=== PATIENT | male | born 1995 | race Caucasian/White ===

== ENCOUNTER 2020-10-24 17:34 | Emergency (ER) | payer OTHER, SELFPAY ==
[2020-10-24 17:36] VITALS: BP 122/78; PULSE 99; RESP 20; TEMP 36.5; O2SAT 100; BMI 25.0
--- NOTE | 2020-10-24 19:26 | PC.NURSE ---
provider at bedside
--- NOTE | 2020-10-24 19:38 | ECG_ITS ---
Test Reason : CHEST PAIN Blood Pressure : / mmHG Vent. Rate : 074 BPM Atrial Rate : 074 BPM P-R Int : 136 ms QRS Dur : 096 ms QT Int : 408 ms P-R-T Axes : 069 073 043 degrees QTc Int : 452 ms Normal sinus rhythm Normal ECG When compared with ECG of 17-JUN-2015 15:52, No significant change was found Referred By: Nikki Napoles Electronically Signed By:LYNNE WOODY MD
--- NOTE | 2020-10-24 19:39 | XR_ITS ---
EXAMINATION: XR CHEST CLINICAL INFORMATION: Chest pain COMPARISON: None TECHNIQUE: Frontal view of the chest was obtained. FINDINGS: No significant abnormality is noted involving the heart, lungs, mediastinum, bony thorax or soft tissues. XR/XR chest 1V IMPRESSION: Unremarkable examination.
--- NOTE | 2020-10-24 19:44 | ED.GENADULT ---
HPI - General Adult General Chief complaint: General Medical Stated complaint: covid symptoms Time Seen by Provider: 10/24/20 19:38 Source: patient Mode of arrival: ambulatory History of Present Illness HPI narrative: 25-year-old male with no significant past medical history presenting to the ED complaining nausea, nonbloody emesis and diarrhea, generalized fatigue/weakness, chills, upper abdominal pain, chest pain, mild SOB x3 weeks. Also reports syncopal episode in bathroom today while vomiting. Reports vomiting about 16x today. States CP has been constant x3 weeks described as pressure/tightness, worse inspiration/movement. Denies head trauma, headache, recent travel, suspicious food intake, LE edema, history of blood clots, sick contacts. Admits was at [facility] ED evaluated this week for similar symptoms, workup was negative was discharged home Onset (ago): day(s) Related Data Allergies Allergy/AdvReac Type Severity Reaction Status Date / Time ibuprofen Allergy Unknown nausea/dry Verified 02/03/18 00:00 heave oxycodone Allergy Unknown nausea/dry Verified 02/03/18 00:00 heave No Known Allergies Allergy Unverified 06/28/20 16:23 Review of Systems Review of Systems: Constitutional: No Weight loss, No Fever, + Chills, +Fatigue,+Malaise ENT/Mouth: No Sinus Pain, No Hoarseness, No sore throat, No Rhinorrhea, No Swallowing Difficulty Eyes: No Vision Changes Cardiovascular: + Chest Pain,+ SOB, No Dyspnea on Exertion, No Orthopnea, No Edema, No Palpitations Respiratory: No Cough, No Sputum, No Wheezing Gastrointestinal: + Nausea, + Vomiting, No Diarrhea, No Constipation, + Abdominal pain, No Hematochezia, No Melena Genitourinary: No irregular bleeding, No Dysuria, No Urinary Frequency, No Hematuria Musculoskeletal: No joint pain, No Myalgias, No Joint Swelling Skin: No Skin Lesions, No rash Neuro: + Weakness, + Loss of Consciousness, + lightheadedness, No Headache Yes all other systems are reviewed and are negative [facility] Past Medical History Attestation statement: The following information was validated with the patient. Social History Social History Alcohol intake: never Smoked in Last 30 Days: No Use of substances other than those prescribed or required for medical reasons: No Advance Directives: No Advance Directives Information Provided: Yes Physical Exam Vital Signs: Vital Signs: Last Vital Signs Temp 97.7 F 10/24/20 17:36 Pulse 99 10/24/20 17:36 Resp 20 10/24/20 17:36 BP 122/78 10/24/20 17:36 Pulse Ox 100 10/24/20 17:36 Body Mass Index 25.0 Const: Other: Pale General: cooperative Orientation/consciousness: patient oriented x3 Limitations: no limitations HENMT: Head: Yes normal to inspection and Yes atraumatic Ears: hearing grossly normal bilaterally General nose exam: Normal external nose present Face and sinus: Yes normal facial exam Throat: Yes posterior oropharynx normal, Yes tonsils normal and Yes uvula midline Eyes: General: appearance normal, both eyes and all related structures Pupils: Equal, round and reactive pupils present EOM: EOMs intact bilaterally Neck: Neck: Yes normal visual inspection and Yes no meningeal signs Resp: Effort & Inspection: normal respiratory effort Auscultation: clear to auscultation bilaterally, no rales, no rhonchi and no wheezes Cardio: Rate: regular rate Heart sounds: S1 normal heart sound present and S2 normal heart sound present GI: Inspection: Yes normal to inspection Palpation (GI): Soft to palpation, Tenderness to palpation present (GI) in the epigastrum, in the RLQ, in the LUQ and in the RUQ, no guarding and not rigid Skin: Rashes: no rashes Wounds: no wounds Neuro: General: patient oriented x3, gait normal, tone normal, moves all extremities, no meningeal signs, no focal motor deficits and CN's II-XI intact bilaterally Cranial nerves: Yes Equal, round and reactive pupils present Cognition (Neuro): normal cognition Gait exam (Neuro): Normal gait present Motor exam (neuro): 5/5 motor strength present throughout Coordination: [id number] test normal Extrem: Other: No LE edema or calf tenderness General: Yes normal to inspection Course Course Course Narrative: Obtained records from [facility] from patient's visit on 10/22/2020. Had workup consisted of labs, CXR, and bedside ultrasound which were unremarkable, was discharged with diagnosis of costochondritis CXR unremarkable -2100-- ED care transferred to [facility] pending labs, UA, imaging, orthostatics, and re-evaluation. Dispo per results Medical Decision Making [facility] Narrative Medical decision making narrative: 25-year-old male with no significant past medical history presenting to the ED complaining nausea, nonbloody emesis and diarrhea, generalized fatigue/weakness, chills, upper abdominal pain, chest pain, mild SOB x3 weeks. Also reports syncopal episode in bathroom today while vomiting. On exam pale, tachycardic with heart rate 99, lungs CTA, abdomen soft with upper/RLQ TTP, no rebound or guarding, no focal neuro deficits. Concern for dehydration vs appendicitis/gastroenteritis vs GERD/gastritis/Pancreatitis/cholecystitis vs viral syndrome/COVID-19 vs PE. Lower concern for ACS or pneumonia. Patient admits ultrasound at [facility] was unremarkable Plan: EKG, labs, UA, CXR, COVID-19 testing, CT abdomen pelvis, IVF, orthostatics, symptomatic therapy/reassess Arthur head CT rule negative as patient has not had emesis since fall ECG Data Attestation: I personally reviewed and interpreted this ECG as follows: Prior ECG tracings: available for review Interpretation: EKG normal sinus rhythm with a rate of 74. Unchanged from priors. No STEMI/ischemic changes
--- NOTE | 2020-10-24 19:56 | CT_ITS ---
EXAMINATION: CT ABDOMEN AND PELVIS WITH CONTRAST CLINICAL INFORMATION: Upper abdominal tenderness, right lower quadrant tenderness, nausea and vomiting. COMPARISON: None TECHNIQUE: Multidetector volumetric images were obtained from the superior aspect of the liver through the pubic symphysis following administration 85 mL of Omnipaque 350 intravenous contrast. Sagittal and coronal reformatted images were obtained on the technologist's workstation. Oral Contrast: No. This CT examination was performed using dose optimization techniques as appropriate, variously including the following: *Automated exposure control. *Adjustment of mA and/or kV according to patient size (this includes techniques or standardized protocols for targeted exams where dose is matched to indication/reason for exam; i.e. extremities or head). *Use of iterative reconstruction technique. DLP: 512 mGy-cm FINDINGS: LUNG BASES: The visualized lung bases are unremarkable. LIVER, GALLBLADDER, AND BILIARY TREE: The liver is normal in size, shape, and attenuation. No focal hepatic lesion or biliary ductal dilatation is present. The gallbladder is unremarkable with no evidence of radiopaque gallstones, gallbladder wall thickening, or obvious pericholecystic inflammatory changes. PANCREAS: There is a 0.9 cm cystic lesion seen at the tail of the pancreas which measures water density. This could even represent partial volume averaging of a tiny bit of fluid is seen on coronal imaging. It is not felt to be a worrisome or significant finding. The pancreas is otherwise unremarkable. SPLEEN: Unremarkable. ADRENAL GLANDS: Unremarkable. KIDNEYS AND URETERS: The kidneys are normal in size, shape, and attenuation. No hydronephrosis, hydroureter, or calculi seen. No perinephric stranding. BLADDER: Empty and cannot be evaluated. GASTROINTESTINAL TRACT: The small and large bowel are unremarkable. The appendix appears to have been removed. ABDOMINAL WALL: No significant hernia is appreciated. Some atrophic changes are present in the rectus muscles probably secondary to prior surgery. LYMPH NODES: No retroperitoneal lymphadenopathy. VASCULAR: Unremarkable. PELVIC VISCERA: Unremarkable. OSSEOUS STRUCTURES: Unremarkable. CT/CT abdomen pelvis w con IMPRESSION: A cause for the patient's upper abdominal and right lower quadrant pain has not been found. No significant abnormality is felt to be present.
[2020-10-24] MEDS: 0.9 % Sodium Chloride 1,000 ML 999 ML IVCONT ×2 (20:15→21:44)
[2020-10-24] MEDS: ondansetron HCL 4 MG/2 ML VIAL IVPUSH ×2 (20:20→23:38)
[2020-10-24] MEDS: Lidocaine HCl Viscous 2 % 15 ML SOLUTION MUCOUS MEM (20:21)
[2020-10-24] MEDS: Famotidine/PF 20 MG/2 ML VIAL IVPUSH (20:21)
[2020-10-24] MEDS: Magnesium Hydrox/Alum Hydrox 30 ML ORAL.SUSP PO (20:21)
[2020-10-24 21:06] VITALS: BP 115/77; PULSE 67
[2020-10-24 21:07] VITALS: BP 125/83; PULSE 78
[2020-10-24 21:09] VITALS: BP 127/81; PULSE 90
[2020-10-24 21:12] VITALS: BP 127/81; PULSE 90; RESP 14; O2SAT 97
[2020-10-24 21:32] LABS: MANUAL DIFF FLAG NO
[2020-10-24 21:34] LABS: Basophils Absolute Auto 0.1 X10*3/uL (0.0-0.2); Basophils Percent Auto 0.9 % (0-2); Eosinophils Absolute Auto 0.1 X10*3/uL (0.0-0.4); Eosinophils Percent Auto 1.2 % (0-4); Hematocrit 44.9 % (42-52); Hemoglobin 16.2 g/dl (14.0-18.0); Imm Gran Abs Auto 0.03 X10*3/uL (0.00-0.03); Imm Gran Pct Auto 0.3 % (0.0-0.4); Lymphocytes Absolute Auto 2.4 X10*3/uL (1.2-4.9); Lymphocytes Percent Auto 28.1 % (20-40); Mean Corpuscular HGB Conc 36.1 g/dl (31.0-36.0); Mean Corpuscular Volume 85.9 fL (80-98); Mean Platelet Volume 10.1 fL (9.4-12.4); Monocytes Absolute Auto 0.7 X10*3/uL (0.1-1.2); Neutrophils Absolute Auto 5.3 X10*3/uL (2.0-8.3); Neutrophils Percent Auto 61.5 % (45-73); Platelet Count 343 X10*3/uL (160-400); Red Blood Count 5.23 X10*6/uL (4.60-5.80); Red Cell Distribution Width 11.4 % (11.0-16.0); White Blood Count 8.7 X10*3/uL (4.8-10.8)
[2020-10-24 21:36] LABS: Glucose Urine UA NEG (NEG); Leukocyte Esterase Urine NEG (NEG); Nitrite Urine NEG (NEG); Specific Gravity - Urine >= 1.030 (1.005-1.025); Urine Blood NEG (NEG); Urine Ketones >=80 MG/DL (NEG); Urine Protein NEG (NEG-TRACE)
[2020-10-24 21:39] LABS: INTERNATIONAL NORM RATIO 1.2 (0.9-1.1); Prothrombin Time 14.5 SEC (10.8-13.0)
[2020-10-24 21:42] LABS: D Dimer 267 NG/ML; Partial Thromboplastin Time 35.2 SEC (24.1-38.0)
[2020-10-24 21:42] LABS: Appearance Urine CLEAR; Color Urine YELLOW
[2020-10-24 21:55] LABS: Alanine Aminotransferase 38 U/L (0-40); Albumin Level 5.1 g/dL (3.5-5.0); Alkaline Phosphatase 63 U/L (39-117); Anion Gap 19 (12-20); Aspartate Amino Transferase 23 U/L (5-37); Bilirubin Direct 0.6 mg/dL (0.0-0.5); Bilirubin Total 1.8 mg/dL (0.0-1.0); Blood Urea Nitrogen 13 mg/dL (9-16); C Reactive Protein 0.26 mg/dL (< or = 0.50); Calcium 9.7 mg/dL (8.4-10.2); Carbon Dioxide 20 mmol/L (22-29); Chloride 106 mmol/L (96-108); Creatinine Clr Calc Pharmacy 94.1; Estimated Glomerular Filt Rate > 60; Glucose Random 80 mg/dL (60-115); Lactate Dehydrogenase 159 U/L (118-273); Lipase 25 U/L (8-78); Magnesium 2.1 mg/dL (1.6-2.6); Potassium 3.8 mmol/l (3.3-5.1); Sodium 141 mmol/L (135-145); Total Protein 8.3 g/dL (6.5-8.0)
[2020-10-24 21:57] LABS: Amphetamine Screen Urine Not Detected (Not Detect); Barbiturates, Urine Not Detected (Not Detect); Benzodiazepines Screen Urine Not Detected (Not Detect); Cannabinoid Screen Urine Not Detected (Not Detect); Cocaine Screen Urine Not Detected (Not Detect); Opiate Screen Urine Not Detected (Not Detect); Phencyclidine Screen Urine Not Detected (Not Detect)
[2020-10-24 21:59] LABS: B Type Natriuretic Peptide 14 pg/mL (<100); Troponin-I High Sensitivity < 3.5 ng/L (<3.5-35.0)
[2020-10-24] MEDS: iohexoL 350 MG/ML 100 ML INFUS..BTL IV (22:10)
[2020-10-24 22:11] LABS: Influenza A PCR NEGATIVE (Negative); Influenza B PCR NEGATIVE (Negative); Resp Syncy Virus RNA Qual PCR NEGATIVE (Negative); SARS COV2 PCR INHOUSE NEGATIVE (Negative)
[2020-10-24 22:16] LABS: Procalcitonin < 0.02 ng/mL
[2020-10-24 22:17] LABS: Ferritin 251 ng/mL (20-250)
--- NOTE | 2020-10-25 | CT_ITS ---
EXAMINATION: CT ANGIOGRAM OF THE CHEST WITH AND WITHOUT CONTRAST (CT PULMONARY ANGIOGRAM FOR PE) CLINICAL INFORMATION: Reason for Exam sob without exertion, + ddimer COMPARISON: Chest radiograph from the same date TECHNIQUE: Prior to contrast administration, noncontrast localization images were obtained. Subsequently, multidetector volumetric imaging was performed from the thoracic inlet to below the diaphragms following the administration of 65 mL Omnipaque 350 intravenous contrast. No contrast reaction reported Sagittal, coronal, and MIP oblique sagittal reformatted images were obtained on the CT workstation, uploaded to PACS, and reviewed. This CT examination was performed using dose optimization techniques as appropriate, variously including the following: *Automated exposure control *Adjustment of mA and/or kV according to patient size (this includes techniques or standardized protocols for targeted exams where dose is matched to indication/reason for exam; i.e. extremities or head) *Use of iterative reconstruction technique Total exam dose-length product 372 mGy-cm FINDINGS: QUALITY OF STUDY/CONTRAST BOLUS: Satisfactory. PULMONARY ARTERIES: No central or segmental pulmonary emboli. THORACIC AORTA: No aneurysm or dissection. LUNG: No focal consolidation, nodules or masses. PLEURA: No pleural effusion or pneumothorax. MEDIASTINUM: Normal heart size. No pericardial effusion. No hilar or mediastinal lymphadenopathy. No evidence of septal bowing or right heart strain. CHEST WALL/AXILLA: No axillary or internal mammary lymphadenopathy. Bilateral gynecomastia. OSSEOUS STRUCTURES: No acute or suspicious osseous abnormality. UPPER ABDOMEN: Unremarkable. No reflux of contrast into the hepatic veins to suggest elevated right heart pressures. CT/CT angio chest PE protocol IMPRESSION: No acute findings in the chest. No evidence of pulmonary emboli. VTE: negative
[2020-10-25] MEDS: iohexoL 350 MG/ML 100 ML INFUS..BTL 65 ML IV (00:59)
[2020-10-25 01:51] VITALS: BP 137/87; PULSE 65; RESP 16; TEMP 37.2; O2SAT 98
[2020-10-25 01:52] VITALS: BP 137/87; PULSE 65; TEMP 37.2; O2SAT 98
== END 2020-10-25 01:58 | disposition home or self-care (01) ==
PROVIDERS: Physician Assistant; Emergency Provider Internal Medicine
DX: R55 Syncope and collapse (principal); R11.2 Nausea with vomiting, unspecified; R07.9 Chest pain, unspecified; Z20.822 Contact with and (suspected) exposure to COVID-19; R10.10 Upper abdominal pain, unspecified; R10.31 Right lower quadrant pain; R00.0 Tachycardia, unspecified
CPT/HCPCS: 0241U; 36415; 71045; 71275; 74177; 80048; 80076; 80307; 81003; 82728; 83615; 83690; 83735; 83880; 84145; 84484; 85025; 85379; 85610; 85730; 86140; 93005; 96361; 96374; 96375; 96376; 99284; J2405; Q9967

== ENCOUNTER 2020-11-15 01:27 | Emergency (ER) | payer OTHER, SELFPAY ==
[2020-11-15 03:16] VITALS: BP 121/73; PULSE 80; RESP 18; TEMP 36.7; O2SAT 100
[2020-11-15 03:30] VITALS: BP 121/73; PULSE 80; RESP 18; TEMP 36.7; O2SAT 100
[2020-11-15 04:43] VITALS: BMI 23.6
--- NOTE | 2020-11-15 04:58 | ECG_ITS ---
Test Reason : MEDICAL Blood Pressure : / mmHG Vent. Rate : 075 BPM Atrial Rate : 075 BPM P-R Int : 134 ms QRS Dur : 096 ms QT Int : 412 ms P-R-T Axes : 073 073 041 degrees QTc Int : 460 ms Normal sinus rhythm Normal ECG When compared with ECG of 24-OCT-2020 19:47, No significant change was found Referred By: Quynh Rice Electronically Signed By:BISI LUKE
--- NOTE | 2020-11-15 04:58 | XR_ITS ---
EXAMINATION: CHEST 1 VIEW CLINICAL INFORMATION: Chest pain. COMPARISON: 10/24/2020. TECHNIQUE: An AP view of the chest is provided. FINDINGS: The cardiac silhouette is not enlarged. The mediastinal and hilar contours are unremarkable. There are neither pleural effusions nor pneumothoraces. There are no consolidations. The osseous structures are unremarkable. XR/XR chest 1V IMPRESSION: No evidence for acute disease.
--- NOTE | 2020-11-15 04:58 | ED.GENADULT ---
HPI - General Adult General Chief complaint: General Medical Stated complaint: Multiple Complaints Time Seen by Provider: 11/15/20 04:49 Source: patient Mode of arrival: ambulatory Limitations: no limitations History of Present Illness HPI narrative: Patient comes emergency room complaining bilateral chest pain. Patient states it has been intermittent for the last 6 weeks, states it lasts for a few minutes, sometimes it is on the right side, sometimes in the left side. Patient states it is worse if he presses on his chest. Patient denies shortness of breath. Patient states he scheduled his 1st visit with his PCP which is in January. Patient states that recently he went to physical therapy, he told me that he has muscular chest pain, patient states he had a chest massage and since then the pain has been going on worse on both sides of the chest. Related Data Previous Rx's Medication Instructions Recorded ondansetron HCl [Zofran] 4 mg PO Q8H PRN #14 tab 10/25/20 Allergies Allergy/AdvReac Type Severity Reaction Status Date / Time ibuprofen Allergy Unknown nausea/dry Verified 02/03/18 00:00 heave oxycodone Allergy Unknown nausea/dry Verified 02/03/18 00:00 heave No Known Allergies Allergy Unverified 06/28/20 16:23 Review of Systems Review of Systems: Constitutional : No Weight loss, No Fever, No Chills, No Night Sweats, No Fatigue, No Malaise ENT/Mouth : No Hearing loss, No Ear Pain, No Nasal Congestion, No Sinus Pain, No Hoarseness, No sore throat, No Rhinorrhea, No Swallowing Difficulty Eyes: No Eye Pain, No Swelling, No Redness, No Foreign Body, No Discharge, No Vision Changes Cardiovascular : Intermittent bilateral Chest Pain, No SOB, No Dyspnea on Exertion, No Orthopnea, No Edema, No Palpitations Respiratory : No Cough, No Sputum, No Wheezing, No Smoke Exposure, No Dyspnea Gastrointestinal : No Nausea, No Vomiting, No Diarrhea, No Constipation, No abdominal Pain, No Hematochezia, No Melena Genitourinary : no irregular bleeding, No Dysuria, No Urinary Frequency, No Hematuria, No Urinary Incontinence, No Urgency, No Flank Pain, No Urinary Flow Changes, No Hesitancy Musculoskeletal : No joint pain, No Myalgias, No Joint Swelling Skin : No Skin Lesions, No rash Neuro : No Weakness, No Numbness, No Paresthesias, No Loss of Consciousness, No Dizziness, No Headache Psych : No Anxiety/Panic, No Depression, No SI/HI/AH/VH, No Social Issues, Heme/Lymph: No Bruising, No Bleeding,No Lymphadenopathy Endocrine : No Polyuria, No Polydipsia, No Temperature Intolerance [facility] Social History Social History Alcohol intake: never Advance Directives: No Physical Exam Vital Signs: Vital Signs: Last Vital Signs Temp 98.1 F 11/15/20 05:29 Pulse 69 11/15/20 05:29 Resp 17 11/15/20 05:29 BP 130/86 11/15/20 05:29 Pulse Ox 100 11/15/20 05:29 Body Mass Index 23.6 Appearance: Alert. Oriented X3. No acute distress. Eyes: Pupils equal, round and reactive to light. ENT: Pharynx normal. Neck: Normal inspection. Neck supple. No lymph nodes noted. No crepitus CVS: Normal heart rate and rhythm. Pulses normal. Normal S1 and S2 Respiratory: No respiratory distress. Breath sounds normal. No Wheezing. No rales Abdomen: Soft and nontender. No rigidity. No distention. good BS x4 Skin: Skin warm and dry. Normal skin color. Normal skin turgor. Extremities: No lower extremity edema. No lower extremity edema. No Lacerations. No Rash Neuro: Oriented X 3. No motor deficit. No sensory deficit. Moving all extermities. No slurred speech. Course Reevaluation(s) Reevaluation #1: On October 25 2020, patient had a CTA for PE which was negative. He also had an abdomen pelvis CT scan which was negative as well. Patient's EKG, chest x-ray and labs within normal limits. Patient instructed to follow-up with his primary care physician. Medical Decision Making Lab Data Result diagrams: 11/15/20 05:17 11/15/20 05:17 Labs: Lab Results 11/15/20 11/15/20 11/15/20 Range/Units 05:17 05:17 05:17 WBC 9.8 (4.8-10.8) X10*3/uL RBC 4.98 (4.60-5.80) X10*6/uL Hgb 15.5 (14.0-18.0) g/dl Hct 42.8 (42-52) % MCV 85.9 (80-98) fL MCH 31.1 (27.0-33.0) pg MCHC 36.2 H (31.0-36.0) g/dl RDW 11.7 (11.0-16.0) % Plt Count 286 (160-400) X10*3/uL MPV 9.1 L (9.4-12.4) fL Immature Gran % (Auto) 0.2 (0.0-0.4) % Neut % (Auto) 64.5 (45-73) % Lymph % (Auto) 27.0 (20-40) % [place] % (Auto) 6.9 (2-11) % Eos % (Auto) 0.8 (0-4) % Baso % (Auto) 0.6 (0-2) % Lymph # (Auto) 2.6 (1.2-4.9) X10*3/uL [place] # (Auto) 0.7 (0.1-1.2) X10*3/uL Eos # (Auto) 0.1 (0.0-0.4) X10*3/uL Baso # (Auto) 0.1 (0.0-0.2) X10*3/uL Abs Immat Gran (auto) 0.02 (0.00-0.03) X10*3/uL Absolute Neuts (auto) 6.3 (2.0-8.3) X10*3/uL Absolute Nucleated RBC 0.000 (0.0-0.012) X10*3/uL Nucleated RBC % (auto) 0.0 (0.0-0.2) /100WBC Sodium 139 (135-145) mmol/L Potassium 3.8 (3.3-5.1) mmol/L Chloride 106 (96-108) mmol/L Carbon Dioxide 20 L (22-29) mmol/L Anion Gap 17 (12-20) BUN 19 H (9-16) mg/dL Creatinine 1.03 (0.5-1.4) mg/dL Estim Creat Clear Calc 106.0 Estimated GFR > 60 Random Glucose 82 (60-115) mg/dL Calcium 9.2 (8.4-10.2) mg/dL Troponin I High Sens < 3.5 (<3.5-35.0) ng/L Imaging Data Chest x-ray: Radiologist's impression: The cardiac silhouette is not enlarged. The mediastinal and hilar contours are unremarkable. There are neither pleural effusions nor pneumothoraces. There are no consolidations. The osseous structures are unremarkable. XR/XR chest 1V IMPRESSION: No evidence for acute disease. ECG Data Attestation: I personally reviewed and interpreted this ECG as follows: (Sinus rhythm, heart rate 75, no ST segment depression or elevation, no T-wave inversions, QTC 460) Scores Heart Score History: -0- slightly suspicious ECG: -0- normal Age: -0- < or = 45 Risk factory: -0- no risk factors known Troponin: -0- < or = normal limit Score: 0 Risk: 1.7% Discharge Plan Discharge Clinical Impression: Atypical chest pain Patient Disposition: Home, Self-Care Instructions: Chest Pain (ED), Chest Wall Pain (ED) Additional Instructions: Please follow-up with your primary care physician tomorrow. If you have any worsening or new symptoms, please return to the emergency room or call 911 Prescriptions: No Action ondansetron HCl [Zofran] 4 mg tablet 4 mg PO Q8H PRN (Reason: nausea and vomiting) Qty: 14 RF: 0
[2020-11-15 05:23] LABS: Basophils Absolute Auto 0.1 X10*3/uL (0.0-0.2); Basophils Percent Auto 0.6 % (0-2); Eosinophils Absolute Auto 0.1 X10*3/uL (0.0-0.4); Eosinophils Percent Auto 0.8 % (0-4); Hematocrit 42.8 % (42-52); Hemoglobin 15.5 g/dl (14.0-18.0); Imm Gran Abs Auto 0.02 X10*3/uL (0.00-0.03); Imm Gran Pct Auto 0.2 % (0.0-0.4); Lymphocytes Absolute Auto 2.6 X10*3/uL (1.2-4.9); Mean Corpuscular HGB Conc 36.2 g/dl (31.0-36.0); Mean Corpuscular Hemoglobin 31.1 pg (27.0-33.0); Mean Corpuscular Volume 85.9 fL (80-98); Mean Platelet Volume 9.1 fL (9.4-12.4); Monocytes Absolute Auto 0.7 X10*3/uL (0.1-1.2); Monocytes Percent Auto 6.9 % (2-11); Neutrophils Absolute Auto 6.3 X10*3/uL (2.0-8.3); Neutrophils Percent Auto 64.5 % (45-73); Platelet Count 286 X10*3/uL (160-400); Red Blood Count 4.98 X10*6/uL (4.60-5.80); Red Cell Distribution Width 11.7 % (11.0-16.0); White Blood Count 9.8 X10*3/uL (4.8-10.8)
[2020-11-15 05:24] LABS: MANUAL DIFF FLAG NO
[2020-11-15 05:29] VITALS: BP 130/86; PULSE 69; RESP 17; TEMP 36.7; O2SAT 100
[2020-11-15] MEDS: Acetaminophen 325 MG TABLET 650 MG PO (05:43)
[2020-11-15 05:54] LABS: Troponin-I High Sensitivity < 3.5 ng/L (<3.5-35.0)
[2020-11-15 06:03] LABS: Anion Gap 17 (12-20); Blood Urea Nitrogen 19 mg/dL (9-16); Calcium 9.2 mg/dL (8.4-10.2); Carbon Dioxide 20 mmol/L (22-29); Chloride 106 mmol/L (96-108); Estimated Glomerular Filt Rate > 60; Glucose Random 82 mg/dL (60-115); Potassium 3.8 mmol/L (3.3-5.1); Sodium 139 mmol/L (135-145)
== END 2020-11-15 06:32 | disposition home or self-care (01) ==
PROVIDERS: Emergency Provider Emergency Medicine; PCP Family Medicine
DX: R07.89 Other chest pain (principal); Z79.899 Other long term (current) drug therapy
CPT/HCPCS: 36415; 71045; 80048; 84484; 85025; 93005; 99283

== ENCOUNTER 2020-12-11 11:27 | Outpatient (REF) | payer OTHER, SELFPAY ==
[2020-12-11 12:16] LABS: Hematocrit 45.1 % (42-52); Hemoglobin 15.9 g/dl (14.0-18.0); Mean Corpuscular HGB Conc 35.3 g/dl (31.0-36.0); Mean Corpuscular Hemoglobin 30.7 pg (27.0-33.0); Mean Corpuscular Volume 87.1 fL (80-98); Mean Platelet Volume 9.4 fL (9.4-12.4); Platelet Count 340 X10*3/uL (160-400); Red Blood Count 5.18 X10*6/uL (4.60-5.80); White Blood Count 6.4 X10*3/uL (4.8-10.8)
[2020-12-11 12:57] LABS: Alanine Aminotransferase 21 U/L (0-40); Albumin Level 4.9 g/dL (3.5-5.0); Alkaline Phosphatase 65 U/L (39-117); Anion Gap 15 (12-20); Aspartate Amino Transferase 16 U/L (5-37); Bilirubin Direct 0.4 mg/dL (0.0-0.5); Bilirubin Total 1.3 mg/dL (0.0-1.0); Blood Urea Nitrogen 19 mg/dL (9-16); Calcium 9.5 mg/dL (8.4-10.2); Carbon Dioxide 26 mmol/L (22-29); Chloride 104 mmol/L (96-108); Cholesterol 178 mg/dL; Estimated Glomerular Filt Rate > 60; Glucose Fasting 79 mg/dL (60-99); HDL Cholesterol 37 mg/dL; LDL Cholesterol Calculated 122 mg/dl; Potassium 3.9 mmol/L (3.3-5.1); Sodium 141 mmol/L (135-145); Total Protein 8.2 g/dL (6.5-8.0); Triglycerides 95 mg/dL
[2020-12-11 12:59] LABS: TSH reflex Free T4 0.68 uIU/mL (0.32-4.0)
[2020-12-11 13:14] LABS: Vitamin B12 718 pg/mL (200-900)
== END 2020-12-11 11:28 | disposition home or self-care (01) ==
LOC: HO.LAB 11:27
PROVIDERS: PCP Hospitalist; Visit Provider Hospitalist
DX: Z00.00 Encounter for general adult medical examination without abnormal findings (principal); R20.0 Anesthesia of skin
CPT/HCPCS: 36415; 80048; 80061; 80076; 82607; 84443; 85027

== ENCOUNTER 2021-01-04 19:14 | Emergency (ER) | payer OTHER, SELFPAY ==
--- NOTE | ~2021-01-04 | XR_ITS ---
EXAMINATION: CHEST 1 VIEW CLINICAL INFORMATION: Chest pain. COMPARISON: 11/15/2020. TECHNIQUE: An AP view of the chest is provided. FINDINGS: The cardiac silhouette is not enlarged. The mediastinal and hilar contours are unremarkable. There are neither pleural effusions nor pneumothoraces. There are no consolidations. The osseous structures are stable. XR/XR chest 1V IMPRESSION: No evidence for acute disease.
[2021-01-04 19:22] VITALS: BP 128/78; PULSE 94; RESP 18; TEMP 36.6; O2SAT 100; BMI 22.6
--- NOTE | 2021-01-04 21:56 | ECG_ITS ---
Test Reason : CHEST PAIN Blood Pressure : / mmHG Vent. Rate : 089 BPM Atrial Rate : 089 BPM P-R Int : 134 ms QRS Dur : 094 ms QT Int : 384 ms P-R-T Axes : 070 080 060 degrees QTc Int : 467 ms Normal sinus rhythm with sinus arrhythmia Normal EKG No significant changes when compared with the previous EKG of 15 nov 2020 Referred By: Buddy Willis Electronically Signed By:BISI LUKE
--- NOTE | 2021-01-04 21:57 | ED.GENADULT ---
HPI - General Adult General Chief complaint: General Medical Stated complaint: chest pain Time Seen by Provider: 01/04/21 21:55 Source: patient Mode of arrival: ambulatory Limitations: no limitations History of Present Illness HPI narrative: This is a 25-year-old male came in by EMS for assessment of chest pain. 25-year-old male with chest pain started 3 months ago on and off, pain is localized in the mid chest, with no radiation, pain is intermittent comes and goes, worsened by movement of the trunk and taking a deep breath, nothing make it better, patient had multiple ED visits for evaluation of the pain with a negative workup, patient declined any recent travel no lower extremities swelling or pain, no history of PE or DVT patient had CTA chest done 2 months ago was negative for pulmonary embolism. No family history of young or coronary artery disease. Related Data Home Medications Medication Instructions Recorded Confirmed multivitamin 1 tab PO DAILY 11/19/20 12/31/20 Previous Rx's Medication Instructions Recorded cyclobenzaprine 10 mg tablet 10 mg PO TID PRN #90 tab 12/03/20 gabapentin 300 mg capsule 300 mg PO BID 30 Days #60 cap 12/03/20 Allergies Allergy/AdvReac Type Severity Reaction Status Date / Time ibuprofen Allergy Intermediate nausea/dry Verified 12/31/20 14:06 heave oxycodone Allergy Intermediate nausea/dry Verified 12/31/20 14:06 heave dust mites Allergy Intermediate Patient Uncoded 12/31/20 14:06 was notified during allergy testing. maple trees Allergy Mild congestion Uncoded 12/31/20 14:06 Review of Systems Review of Systems: All other systems are reviewed and are negative Constitutional: Reports as per HPI and Reports no additional constitutional complaints Eyes: Reports as per HPI and Reports no additional eye complaints Reports system reviewed and no additional complaints, except as documented Cardiovascular: Reports as per HPI and Reports no additional cardiovascular complaints Respiratory: Reports as per HPI and Reports no additional respiratory complaints Gastrointestinal: Reports as per HPI and Reports no additional gastrointestinal complaints Genitourinary: Reports no additional female genitourinary complaints Musculoskeletal: Reports no additional musculoskeletal complaints Skin/Breast: Reports system reviewed and no additional complaints, except as docu Psychiatric: Reports no additional psychiatric complaints Endocrine: Reports no additional endocrine complaints Hematologic/Lymphatic: Reports no additional hematologic/lymphatic complaints Allergic/Immunologic: Reports no additional allergic/immunologic complaints Reports system reviewed and no additional complaints, except as documented and Reports Abnormal speech present [facility] Past Medical History Medical History Hand numbness History of multiple concussions Left inguinal hernia Normal colonoscopy Partial tear of left subscapularis tendon Surgical History History of appendectomy Family History Family History Paternal Uncle Lung cancer Social History Social History Alcohol intake: current Smoking Status: Never smoker Advance Directives: No Advance Directives Information Provided: Yes Physical Exam Vital Signs: Vital Signs: Last Vital Signs Temp 97.9 F 01/04/21 19:22 Pulse 90 01/04/21 23:47 Resp 16 01/04/21 23:47 BP 126/79 01/04/21 23:47 Pulse Ox 100 01/04/21 19:22 Body Mass Index 22.6 Vital signs have been reviewed as appeared to be correct. Blood pressure normal. Heart rate normal. Respiration rate normal. Temperature normal. Oxygen saturation normal. Appearance: Alert. Oriented X3. No acute distress, anxious. Head: Normal external exam. Normocephalic. Atraumatic. No Jaimes signs noted. No raccoon eyes noted Eyes: PERRLA. EOMI. Conjunctiva and sclera normal. Eyelids normal. ENT: TM's Normal. Pharynx normal. Uvula midline. Moist mucous membranes. No trismus noted. No drooling noted. No muffled voice noted. Neck: Normal inspection. Neck supple. FROM. No adenopathy. Thyroid Normal. No meningeal signs. No neck mass noted. CVS: Normal heart rate and rhythm. Heart sound normal. No murmurs noted. Pulses normal throughout. Respiratory: No respiratory distress. Painless inspiration. Breath sounds normal. No wheezes/rales/rhonchi noted. Chest nontender. No accessory muscle usage noted or decreased air movement noted. Abdomen: Soft and nontender. Bowel sounds normal in all 4 quadrants. No distention noted. No organomegaly noted. No visible injury noted. Back: No CVA tenderness. Full range of motion noted. Skin: Skin warm and dry. Normal skin color. Normal skin turgor. No rashes/lesions/lacerations noted. Extremities: No lower extremity edema. Extremities exhibit normal range of motion. Extremities nontender. Neuro: Oriented X 3. No motor deficit. No sensory deficit. Reflexes normal. Course Course Course Narrative: Assessment and plan. 25-year-old male with chest pain, patient had multiple ED visits for assessing patient's chest pain, patient's HEART score is 0, D-dimer is negative chest x-ray is unremarkable, will discharge the patient maybe with outpatient cardiology consultation for further patient's reassurance. Medical Decision Making Lab Data Lab results reviewed: Yes I reviewed the patient's lab results. Result diagrams: 01/04/21 22:32 01/04/21 22:32 Labs: Lab Results 01/04/21 01/04/21 01/04/21 Range/Units 22:32 22:32 22:32 WBC 9.1 (4.8-10.8) X10*3/uL RBC 5.02 (4.60-5.80) X10*6/uL Hgb 15.6 (14.0-18.0) g/dl Hct 44.3 (42-52) % MCV 88.2 (80-98) fL MCH 31.1 (27.0-33.0) pg MCHC 35.2 (31.0-36.0) g/dl RDW 11.9 (11.0-16.0) % Plt Count 280 (160-400) X10*3/uL MPV 9.2 L (9.4-12.4) fL Immature Gran % (Auto) 0.2 (0.0-0.4) % Neut % (Auto) 72.5 (45-73) % Lymph % (Auto) 19.5 L (20-40) % [place] % (Auto) 6.4 (2-11) % Eos % (Auto) 0.8 (0-4) % Baso % (Auto) 0.6 (0-2) % Lymph # (Auto) 1.8 (1.2-4.9) X10*3/uL [place] # (Auto) 0.6 (0.1-1.2) X10*3/uL Eos # (Auto) 0.1 (0.0-0.4) X10*3/uL Baso # (Auto) 0.1 (0.0-0.2) X10*3/uL Abs Immat Gran (auto) 0.02 (0.00-0.03) X10*3/uL Absolute Neuts (auto) 6.6 (2.0-8.3) X10*3/uL Absolute Nucleated RBC 0.000 (0.0-0.012) X10*3/uL Nucleated RBC % (auto) 0.0 (0.0-0.2) /100WBC D-Dimer < 200 NG/ML Sodium 140 (135-145) mmol/L Potassium 3.8 (3.3-5.1) mmol/L Chloride 104 (96-108) mmol/L Carbon Dioxide 24 (22-29) mmol/L Anion Gap 16 (12-20) BUN 15 (9-16) mg/dL Creatinine 1.07 (0.5-1.4) mg/dL Estim Creat Clear Calc 100.8 Estimated GFR > 60 Random Glucose 88 (60-115) mg/dL Calcium 9.4 (8.4-10.2) mg/dL Total Bilirubin 1.0 (0.0-1.0) mg/dL Direct Bilirubin 0.3 (0.0-0.5) mg/dL AST 16 (5-37) U/L ALT 19 (0-40) U/L Alkaline Phosphatase 65 (39-117) U/L Troponin I High Sens (<3.5-35.0) ng/L B-Natriuretic Peptide (<100) pg/mL Total Protein 7.8 (6.5-8.0) g/dL Albumin 4.6 (3.5-5.0) g/dL Lipase 27 (8-78) U/L Urine Color Urine Appearance Urine pH (5.0-8.0) Ur Specific [place] (1.005-1.025) Urine Protein (NEG-TRACE) MG/DL Urine Glucose (UA) (NEG) MG/DL Urine Ketones (NEG) MG/DL Urine Blood (NEG) Urine Nitrite (NEG) Ur Leukocyte Esterase (NEG) 01/04/21 01/04/21 Range/Units 22:32 23:47 WBC (4.8-10.8) X10*3/uL RBC (4.60-5.80) X10*6/uL Hgb (14.0-18.0) g/dl Hct (42-52) % MCV (80-98) fL MCH (27.0-33.0) pg MCHC (31.0-36.0) g/dl RDW (11.0-16.0) % Plt Count (160-400) X10*3/uL MPV (9.4-12.4) fL Immature Gran % (Auto) (0.0-0.4) % Neut % (Auto) (45-73) % Lymph % (Auto) (20-40) % [place] % (Auto) (2-11) % Eos % (Auto) (0-4) % Baso % (Auto) (0-2) % Lymph # (Auto) (1.2-4.9) X10*3/uL [place] # (Auto) (0.1-1.2) X10*3/uL Eos # (Auto) (0.0-0.4) X10*3/uL Baso # (Auto) (0.0-0.2) X10*3/uL Abs Immat Gran (auto) (0.00-0.03) X10*3/uL Absolute Neuts (auto) (2.0-8.3) X10*3/uL Absolute Nucleated RBC (0.0-0.012) X10*3/uL Nucleated RBC % (auto) (0.0-0.2) /100WBC D-Dimer NG/ML Sodium (135-145) mmol/L Potassium (3.3-5.1) mmol/L Chloride (96-108) mmol/L Carbon Dioxide (22-29) mmol/L Anion Gap (12-20) BUN (9-16) mg/dL Creatinine (0.5-1.4) mg/dL Estim Creat Clear Calc Estimated GFR Random Glucose (60-115) mg/dL Calcium (8.4-10.2) mg/dL Total Bilirubin (0.0-1.0) mg/dL Direct Bilirubin (0.0-0.5) mg/dL AST (5-37) U/L ALT (0-40) U/L Alkaline Phosphatase (39-117) U/L Troponin I High Sens < 3.5 (<3.5-35.0) ng/L B-Natriuretic Peptide 11 (<100) pg/mL Total Protein (6.5-8.0) g/dL Albumin (3.5-5.0) g/dL Lipase (8-78) U/L Urine Color YELLOW Urine Appearance CLEAR Urine pH 7.5 (5.0-8.0) Ur Specific [place] 1.020 (1.005-1.025) Urine Protein NEG (NEG-TRACE) MG/DL Urine Glucose (UA) NEG (NEG) MG/DL Urine Ketones 5 (NEG) MG/DL Urine Blood NEG (NEG) Urine Nitrite NEG (NEG) Ur Leukocyte Esterase NEG (NEG) Imaging Data Chest x-ray: Radiologist's impression: Of acute disease. ECG Data Interpretation: Normal sinus rhythm with sinus arrhythmia, normal axis deviation, normal intervals, no change from old EKG. Discharge Plan Discharge Clinical Impression: Chest pain Patient Disposition: Home, Self-Care Instructions: Chest Pain (ED) Prescriptions: No Action multivitamin Tablet 1 tab PO DAILY RF: 0 cyclobenzaprine 10 mg tablet 10 mg PO TID PRN (Reason: muscle spasm) Qty: 90 RF: 1 gabapentin 300 mg capsule 300 mg PO BID 30 Days Qty: 60 RF: 1 Referrals: Antoine Coreas MD [Physician] - 2 days Celeste Babcock NP [Primary Care Provider] - 2 days
[2021-01-04] MEDS: 0.9 % Sodium Chloride 1,000 ML 999 ML IVCONT (22:30)
--- NOTE | 2021-01-04 22:33 | PC.NURSE ---
IV established, labs obtained. IVF infusing per MAR. chiller technician at bedside for EKG. Pt to attempt UA.
[2021-01-04 22:36] LABS: MANUAL DIFF FLAG NO
[2021-01-04 22:38] LABS: Basophils Absolute Auto 0.1 X10*3/uL (0.0-0.2); Basophils Percent Auto 0.6 % (0-2); Eosinophils Absolute Auto 0.1 X10*3/uL (0.0-0.4); Eosinophils Percent Auto 0.8 % (0-4); Hematocrit 44.3 % (42-52); Hemoglobin 15.6 g/dl (14.0-18.0); Imm Gran Abs Auto 0.02 X10*3/uL (0.00-0.03); Imm Gran Pct Auto 0.2 % (0.0-0.4); Lymphocytes Absolute Auto 1.8 X10*3/uL (1.2-4.9); Lymphocytes Percent Auto 19.5 % (20-40); Mean Corpuscular HGB Conc 35.2 g/dl (31.0-36.0); Mean Corpuscular Hemoglobin 31.1 pg (27.0-33.0); Mean Corpuscular Volume 88.2 fL (80-98); Mean Platelet Volume 9.2 fL (9.4-12.4); Monocytes Absolute Auto 0.6 X10*3/uL (0.1-1.2); Monocytes Percent Auto 6.4 % (2-11); Neutrophils Absolute Auto 6.6 X10*3/uL (2.0-8.3); Neutrophils Percent Auto 72.5 % (45-73); Platelet Count 280 X10*3/uL (160-400); Red Blood Count 5.02 X10*6/uL (4.60-5.80); Red Cell Distribution Width 11.9 % (11.0-16.0); White Blood Count 9.1 X10*3/uL (4.8-10.8)
[2021-01-04 23:15] LABS: Alanine Aminotransferase 19 U/L (0-40); Albumin Level 4.6 g/dL (3.5-5.0); Alkaline Phosphatase 65 U/L (39-117); Anion Gap 16 (12-20); Aspartate Amino Transferase 16 U/L (5-37); Bilirubin Direct 0.3 mg/dL (0.0-0.5); Blood Urea Nitrogen 15 mg/dL (9-16); Calcium 9.4 mg/dL (8.4-10.2); Carbon Dioxide 24 mmol/L (22-29); Chloride 104 mmol/L (96-108); Creatinine Clr Calc Pharmacy 100.8; Estimated Glomerular Filt Rate > 60; Glucose Random 88 mg/dL (60-115); Lipase 27 U/L (8-78); Potassium 3.8 mmol/L (3.3-5.1); Sodium 140 mmol/L (135-145); Total Protein 7.8 g/dL (6.5-8.0)
[2021-01-04 23:20] LABS: B Type Natriuretic Peptide 11 pg/mL (<100); Troponin-I High Sensitivity < 3.5 ng/L (<3.5-35.0)
[2021-01-04 23:47] VITALS: BP 126/79; PULSE 90; RESP 16
--- NOTE | 2021-01-04 23:47 | PC.NURSE ---
Pt ambulating to the bathroom, UA obtained and sent. VSS. Continue to monitor.
[2021-01-04 23:54] LABS: Glucose Urine UA NEG (NEG); Leukocyte Esterase Urine NEG (NEG); Nitrite Urine NEG (NEG); PH 7.5 (5.0-8.0); Urine Blood NEG (NEG); Urine Ketones 5 MG/DL (NEG); Urine Protein NEG (NEG-TRACE)
[2021-01-04 23:55] LABS: Appearance Urine CLEAR; Color Urine YELLOW
[2021-01-05 00:07] LABS: D Dimer < 200 NG/ML
--- NOTE | 2021-01-05 00:31 | PC.NURSE ---
MD at bedside discussing results and plan to DC home.
[2021-01-05 00:40] VITALS: BP 115/81; PULSE 79; RESP 16; O2SAT 98
== END 2021-01-05 00:42 | disposition home or self-care (01) ==
PROVIDERS: Emergency Provider Emergency Medicine; PCP Hospitalist
DX: R07.9 Chest pain, unspecified (principal)
CPT/HCPCS: 36415; 71045; 80048; 80076; 81003; 83690; 83880; 84484; 85025; 85379; 93005; 96360; 99284

== ENCOUNTER → 2021-01-11 10:55 | Outpatient (BNVA) | payer OTHER, SELFPAY | PROVIDERS: PCP Hospitalist; Visit Provider Nurse Practitioner Family | DX: R07.89 Other chest pain (principal); Z79.899 Other long term (current) drug therapy | CPT/HCPCS: 99202 ==

== ENCOUNTER 2021-02-25 22:46 | Emergency (ER) | payer OTHER, SELFPAY ==
--- NOTE | ~2021-02-25 | CT_ITS ---
EXAMINATION: CT HEAD WITHOUT CONTRAST CLINICAL INFORMATION: Headache, light sensitivity COMPARISON: None TECHNIQUE: Contiguous axial imaging was performed from the skull base to vertex without intravenous administration of contrast. This CT examination was performed using dose optimization techniques as appropriate, variously including the following: *Automated exposure control *Adjustment of mA and/or kV according to patient size (this includes techniques or standardized protocols for targeted exams where dose is matched to indication/reason for exam; i.e. extremities or head) *Use of iterative reconstruction technique DLP: 738 mGy-cm FINDINGS: There is no evidence of acute intracranial hemorrhage or territorial infarction. No abnormal mass effect or midline shift is seen. Vega to white matter differentiation is well preserved. No extra-axial fluid collections are identified. The ventricles are normal in size. There is no abnormal attenuation within the brain parenchyma. The osseous structures and soft tissues are normal. The mastoid air cells and visualized portions of the paranasal sinuses are well aerated. CT/CT head/brain wo con IMPRESSION: No acute intracranial pathology.
[2021-02-25 22:52] VITALS: BP 137/91; PULSE 79; RESP 20; TEMP 37.2; O2SAT 100; BMI 22.8
--- NOTE | 2021-02-26 01:03 | ECG_ITS ---
Test Reason : DIZZY HEADACHE Blood Pressure : / mmHG Vent. Rate : 065 BPM Atrial Rate : 065 BPM P-R Int : 136 ms QRS Dur : 096 ms QT Int : 402 ms P-R-T Axes : 053 066 044 degrees QTc Int : 418 ms Normal sinus rhythm Normal ECG When compared with ECG of 04-JAN-2021 22:29, No significant change was found Referred By: Quynh Rice Electronically Signed By:LYNNE WOODY MD
--- NOTE | 2021-02-26 01:05 | ED_ITS ---
HPI - Headache General Chief Complaint: Headache Stated Complaint: headache nausea Time Seen by Provider: 02/26/21 00:16 Source: patient Mode of arrival: ambulatory Limitations: no limitations History of Present Illness HPI Narrative: Patient comes to emergency room complaining of headache for 2-3 weeks, frontal headache, states that he has not taking any medication including Tylenol. Patient also comes complaining runny nose, pressure in his forehead. Patient complaining of chronic weakness for 5 months, states he has had constant chest pain for 5 months, states he has been evaluated by Cardiology. Patient complaining lightheadedness, worse with exertion, which is chronic as well Patient also complaining of diffuse body aches patient is going to physical therapy. Related Data Home Medications Medication Instructions Recorded Confirmed multivitamin 1 tab PO DAILY 11/19/20 01/11/21 hydroxyzine HCl 25 mg tablet 25 mg PO 01/11/21 01/11/21 ondansetron HCl 4 mg tablet 4 mg PO Q8H PRN 01/11/21 01/11/21 Previous Rx's Medication Instructions Recorded cyclobenzaprine 10 mg tablet 10 mg PO TID PRN #90 tab 12/03/20 gabapentin 300 mg capsule 300 mg PO BID 30 Days #60 cap 12/03/20 Allergies Allergy/AdvReac Type Severity Reaction Status Date / Time ibuprofen Allergy Intermediate nausea/dry Verified 02/25/21 22:52 heave oxycodone Allergy Intermediate nausea/dry Verified 02/25/21 22:52 heave dust mites Allergy Intermediate Patient Uncoded 12/31/20 14:06 was notified during allergy testing. maple trees Allergy Mild congestion Uncoded 12/31/20 14:06 Review of Systems 2 Review of Systems: Constitutional : No Weight loss, No Fever, No Chills, complaining of fatigue, general malaise which is chronic ENT/Mouth : No Hearing loss, No Ear Pain, No Nasal Congestion, No Sinus Pain, No Hoarseness, No sore throat, No Rhinorrhea, No Swallowing Difficulty Eyes: No Eye Pain, No Swelling, No Redness, No Foreign Body, No Discharge, No Vi tyson Changes Cardiovascular : No Chest Pain, chronic shortness of breath worse with exertion, No Orthopnea, No Edema, No Palpitations Respiratory : No Cough, No Sputum, No Wheezing, No Smoke Exposure Gastrointestinal : No Nausea, No Vomiting, No Diarrhea, No Constipation, No abdominal Pain, No Hematochezia, No Melena Genitourinary : no irregular bleeding, No Dysuria, No Urinary Frequency, No Hematuria, No Urinary Incontinence, No Urgency, No Flank Pain, No Urinary Flow Changes, No Hesitancy Musculoskeletal : No joint pain, complaining of chronic myalgias, No Joint Swelling Skin : No Skin Lesions, No rash Neuro : No Weakness, No Numbness, No Paresthesias, No Loss of Consciousness, complaining of chronic lightheadedness, complaining of headache for 3 weeks Psych : Lining of anxiety, no Depression, No SI/HI/AH/VH, No Social Issues, Heme/Lymph: No Bruising, No Bleeding,No Lymphadenopathy Endocrine : No Polyuria, No Polydipsia, No Temperature Intolerance [facility] Past Medical History Medical History Hand numbness History of multiple concussions Left inguinal hernia Normal colonoscopy Partial tear of left subscapularis tendon Surgical History History of appendectomy Family History Family History Paternal Uncle Lung cancer Maternal Grandfather Stroke Social History Social History Alcohol intake: current Smoking Status: Never smoker Advance Directives: No Advance Directives Information Provided: No Physical Exam Vital Signs: Vital Signs: Last Vital Signs Temp 98.9 F 02/25/21 22:52 Pulse 79 02/26/21 01:19 Resp 20 02/25/21 22:52 BP 120/88 02/26/21 01:19 Pulse Ox 100 02/25/21 22:52 Body Mass Index 22.8 Appearance: Alert. Oriented X3. No acute distress. Very anxious Eyes: Pupils equal, round and reactive to light. ENT: Pharynx normal. No nasal dripping, mild pressure to palpation over the forehead Neck: Normal inspection. Neck supple. No lymph nodes noted. No crepitus CVS: Normal heart rate and rhythm. Pulses normal. Normal S1 and S2 Respiratory: No respiratory distress. Breath sounds normal. No Wheezing. No rales Abdomen: Soft and nontender. No rigidity. No distention. good BS x4 Skin: Skin warm and dry. Normal skin color. Normal skin turgor. Extremities: No lower extremity edema. No lower extremity edema. No Lacerations. No Rash Neuro: Oriented X 3. No motor deficit. No sensory deficit. Moving all extermities. No slurred speech. Course Course Course Narrative: Discussed with the patient it is likely that the pressure that he is feeling in his forehead and a runny nose, is likely secondary to sinusitis/allergies. Patient has not had any trauma or any indications to suggest that he may be dripping CSF. On physical exam, there was no tripping, no fluid could be obtained. I discussed with the patient that he would benefit from a consult with a human geography faculty member, more specific blood work can be done to rule out any rhe umatologic conditions that may be causing him all of his symptoms. However, patient does have severe anxiety, it is also likely that all of his symptoms are secondary to anxiety MDM - Headache Lab Data Result diagrams: 02/26/21 01:09 02/26/21 01:09 Labs: Lab Results 02/26/21 02/26/21 02/26/21 Range/Units 01:09 01:09 01:09 WBC 7.6 (4.8-10.8) X10*3/uL RBC 4.89 (4.60-5.80) X10*6/uL Hgb 15.4 (14.0-18.0) g/dl Hct 44.0 (42-52) % MCV 90.0 (80-98) fL MCH 31.5 (27.0-33.0) pg MCHC 35.0 (31.0-36.0) g/dl RDW 11.5 (11.0-16.0) % Plt Count 249 (160-400) X10*3/uL MPV 9.3 L (9.4-12.4) fL Immature Gran % (Auto) 0.3 (0.0-0.4) % Neut % (Auto) 63.7 (45-73) % Lymph % (Auto) 25.9 (20-40) % [place] % (Auto) 8.0 (2-11) % Eos % (Auto) 1.4 (0-4) % Baso % (Auto) 0.7 (0-2) % Lymph # (Auto) 2.0 (1.2-4.9) X10*3/uL [place] # (Auto) 0.6 (0.1-1.2) X10*3/uL Eos # (Auto) 0.1 (0.0-0.4) X10*3/uL Baso # (Auto) 0.1 (0.0-0.2) X10*3/uL Abs Immat Gran (auto) 0.02 (0.00-0.03) X10*3/uL Absolute Neuts (auto) 4.9 (2.0-8.3) X10*3/uL Absolute Nucleated RBC 0.000 (0.0-0.012) X10*3/uL Nucleated RBC % (auto) 0.0 (0.0-0.2) /100WBC Sodium 141 (135-145) mmol/L Potassium 3.9 (3.3-5.1) mmol/L Chloride 106 (96-108) mmol/L Carbon Dioxide 28 (22-29) mmol/L Anion Gap 11 L (12-20) BUN 17 H (9-16) mg/dL Creatinine 1.03 (0.5-1.4) mg/dL Estim Creat Clear Calc 104.5 Estimated GFR > 60 Random Glucose 83 (60-115) mg/dL Calcium 9.3 (8.4-10.2) mg/dL Total Bilirubin 0.6 (0.0-1.0) mg/dL Direct Bilirubin 0.2 (0.0-0.5) mg/dL AST 15 (5-37) U/L ALT 21 (0-40) U/L Alkaline Phosphatase 57 (39-117) U/L Troponin I High Sens < 3.5 (<3.5-35.0) ng/L Total Protein 7.3 (6.5-8.0) g/dL Albumin 4.5 (3.5-5.0) g/dL ECG Data Attestation: I personally reviewed and interpreted this ECG as follows: (Sinus rhythm, heart rate 65, no ST segment depression or elevation, no T-wave inversion, QTC 418) Discharge Plan Discharge Clinical Impression: Headache, Rhinorrhea Patient Disposition: Home, Self-Care Instructions: Acute Headache (ED), Rhinosinusitis (ED) Additional Instructions: You may benefit from a consult with rheumatology. Please follow-up with your primary care physician tomorrow. If you have any worsening or new symptoms, please return to the emergency room or call 911 Prescriptions: No Action multivitamin Tablet 1 tab PO DAILY RF: 0 cyclobenzaprine 10 mg tablet 10 mg PO TID PRN (Reason: muscle spasm) Qty: 90 RF: 1 gabapentin 300 mg capsule 300 mg PO BID 30 Days Qty: 60 RF: 1 hydroxyzine HCl 25 mg tablet 25 mg PO RF: 0 ondansetron HCl 4 mg tablet 4 mg PO Q8H PRN (Reason: nausea/vomiting) RF: 0
[2021-02-26 01:13] VITALS: BP 123/80; PULSE 67
[2021-02-26 01:18] VITALS: BP 126/86; PULSE 75
[2021-02-26 01:19] VITALS: BP 120/88; PULSE 79
[2021-02-26 01:19] LABS: MANUAL DIFF FLAG NO
[2021-02-26 01:20] LABS: Basophils Absolute Auto 0.1 X10*3/uL (0.0-0.2); Basophils Percent Auto 0.7 % (0-2); Eosinophils Absolute Auto 0.1 X10*3/uL (0.0-0.4); Eosinophils Percent Auto 1.4 % (0-4); Hemoglobin 15.4 g/dl (14.0-18.0); Imm Gran Abs Auto 0.02 X10*3/uL (0.00-0.03); Imm Gran Pct Auto 0.3 % (0.0-0.4); Lymphocytes Percent Auto 25.9 % (20-40); Mean Corpuscular Hemoglobin 31.5 pg (27.0-33.0); Mean Platelet Volume 9.3 fL (9.4-12.4); Monocytes Absolute Auto 0.6 X10*3/uL (0.1-1.2); Neutrophils Absolute Auto 4.9 X10*3/uL (2.0-8.3); Neutrophils Percent Auto 63.7 % (45-73); Platelet Count 249 X10*3/uL (160-400); Red Blood Count 4.89 X10*6/uL (4.60-5.80); Red Cell Distribution Width 11.5 % (11.0-16.0); White Blood Count 7.6 X10*3/uL (4.8-10.8)
[2021-02-26 01:49] LABS: Troponin-I High Sensitivity < 3.5 ng/L (<3.5-35.0)
[2021-02-26 01:52] LABS: Alanine Aminotransferase 21 U/L (0-40); Albumin Level 4.5 g/dL (3.5-5.0); Alkaline Phosphatase 57 U/L (39-117); Anion Gap 11 (12-20); Aspartate Amino Transferase 15 U/L (5-37); Bilirubin Direct 0.2 mg/dL (0.0-0.5); Bilirubin Total 0.6 mg/dL (0.0-1.0); Blood Urea Nitrogen 17 mg/dL (9-16); Calcium 9.3 mg/dL (8.4-10.2); Carbon Dioxide 28 mmol/L (22-29); Chloride 106 mmol/L (96-108); Creatinine Clr Calc Pharmacy 104.5; Estimated Glomerular Filt Rate > 60; Glucose Random 83 mg/dL (60-115); Potassium 3.9 mmol/L (3.3-5.1); Sodium 141 mmol/L (135-145); Total Protein 7.3 g/dL (6.5-8.0)
== END 2021-02-26 02:16 | disposition home or self-care (01) ==
PROVIDERS: Emergency Provider Emergency Medicine; PCP Hospitalist
DX: R51.9 Headache, unspecified (principal); J34.89 Other specified disorders of nose and nasal sinuses; Z79.899 Other long term (current) drug therapy; Z20.822 Contact with and (suspected) exposure to COVID-19
CPT/HCPCS: 36415; 70450; 80048; 80076; 84484; 85025; 93005; 99283

== ENCOUNTER 2021-03-18 16:02 | Outpatient (REF) | payer OTHER, SELFPAY ==
[2021-03-18 16:56] LABS: MANUAL DIFF FLAG NO
[2021-03-18 17:01] LABS: Basophils Absolute Auto 0.1 X10*3/uL (0.0-0.2); Basophils Percent Auto 0.8 % (0-2); Eosinophils Absolute Auto 0.1 X10*3/uL (0.0-0.4); Hematocrit 45.9 % (42-52); Imm Gran Abs Auto 0.02 X10*3/uL (0.00-0.03); Imm Gran Pct Auto 0.3 % (0.0-0.4); Lymphocytes Percent Auto 31.9 % (20-40); Mean Corpuscular HGB Conc 34.9 g/dl (31.0-36.0); Mean Corpuscular Hemoglobin 31.3 pg (27.0-33.0); Mean Corpuscular Volume 89.6 fL (80-98); Mean Platelet Volume 9.7 fL (9.4-12.4); Monocytes Absolute Auto 0.5 X10*3/uL (0.1-1.2); Monocytes Percent Auto 7.5 % (2-11); Neutrophils Absolute Auto 3.7 X10*3/uL (2.0-8.3); Neutrophils Percent Auto 57.5 % (45-73); Platelet Count 285 X10*3/uL (160-400); Red Blood Count 5.12 X10*6/uL (4.60-5.80); Red Cell Distribution Width 11.4 % (11.0-16.0); White Blood Count 6.4 X10*3/uL (4.8-10.8)
[2021-03-18 17:27] LABS: Alanine Aminotransferase 17 U/L (0-40); Albumin Level 4.5 g/dL (3.5-5.0); Alkaline Phosphatase 66 U/L (39-117); Anion Gap 13 (12-20); Aspartate Amino Transferase 16 U/L (5-37); Bilirubin Total 0.8 mg/dL (0.0-1.0); Blood Urea Nitrogen 14 mg/dL (9-16); Calcium 9.5 mg/dL (8.4-10.2); Carbon Dioxide 24 mmol/L (22-29); Chloride 106 mmol/L (96-108); Estimated Glomerular Filt Rate > 60; Glucose Random 92 mg/dL (60-115); Potassium 4.1 mmol/L (3.3-5.1); Rheumatoid Factor < 15.0 IU/mL (<15.0); Sodium 139 mmol/L (135-145); Total Protein 7.5 g/dL (6.5-8.0)
[2021-03-18 17:57] LABS: Erythrocyte Sedimentation Rate 4 MM/HR (0-15)
[2021-03-20 13:41] LABS: Anti Nuclear Antibody Screen NEGATIVE (NEGATIVE)
== END 2021-03-18 16:03 | disposition home or self-care (01) ==
LOC: HO.LAB 16:02
PROVIDERS: PCP Family Medicine; Visit Provider Family Medicine
DX: G89.29 Other chronic pain (principal)
CPT/HCPCS: 36415; 80053; 85025; 85652; 86038; 86039; 86141; 86431

== ENCOUNTER 2021-06-21 16:10 | Outpatient (REF) | payer OTHER, SELFPAY ==
--- NOTE | ~2021-06-21 | XR_ITS ---
EXAMINATION: XR CERVICAL SPINE CLINICAL INFORMATION: Neck pain COMPARISON: None TECHNIQUE: 3 views of the cervical spine were obtained. FINDINGS: Bone alignment is normal. No fracture or dislocation is seen. Disc spaces are normal. Prevertebral soft tissues are normal. XR/XR cervical spine 2V IMPRESSION: Unremarkable examination.
== END 2021-06-21 16:11 | disposition home or self-care (01) ==
LOC: HO.XRAY 16:10
PROVIDERS: PCP Family Medicine; Visit Provider Family Medicine
DX: M54.2 Cervicalgia (principal)
CPT/HCPCS: 72040

== ENCOUNTER 2022-03-27 07:13 | Outpatient (REF) | payer OTHER, SELFPAY | END 2022-03-27 07:14 | disposition home or self-care (01) | LOC: HO.HOSX 07:13 | PROVIDERS: Visit Provider Physician Assistant | DX: Z13.89 Encounter for screening for other disorder (principal) ==

== ENCOUNTER 2022-05-05 11:51 | Outpatient (REF) | payer OTHER, SELFPAY | END 2022-05-05 11:52 | disposition home or self-care (01) | LOC: HO.HOSX 11:51 | PROVIDERS: Visit Provider Physician Assistant | DX: Z13.89 Encounter for screening for other disorder (principal) ==

== ENCOUNTER 2023-10-16 12:58 | Outpatient (AMB) | payer OTHER, SELFPAY ==
--- NOTE | 2023-10-16 13:04 | MHC.PC.OV ---
Vital Signs 10/16/23 13:11 Height 5 ft 8 in Weight 206 lb BMI 31.3 BP 110/62 Blood Pressure Location Rt brachial Position Sitting Respiration 13 Pulse 65 Pulse Source Pulse Oximeter Pulse Oximetry (%) 99 Oxygen Delivery Method Room Air Intake Visit Reasons: Left Shoulder Injury Intake Note: Patient presents with a L shoulder injury x10 days from bench pressing at the gym. Patient reports he has diminished range of motion. Patient tried to take ibuprofen for the first 3-4 days and it helped minimally. Patient reports his pain was a 10/10 days 1-3 and a 7/10 currently. 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 maple trees Allergy (Mild, Uncoded 10/16/23 13:17) congestion Medication List - Last Reconciled 10/16/23 by Karie Vaz CNP multivitamin 1 tab PO DAILY Tobacco use date assessed: 10/16/23 Dental Screening Dental Screen Date: 10/16/23 Did you have a dental visit in the last 12 months?: Yes Was dental information given to patient?: Patient has dentist HPI HPI Comments History of Present Illness Details 28-year-old male presents with complaints of left shoulder pain and diminished range of motion He notes he injured the shoulder while lifting weights at the gym 10 days ago. Ibuprofen provided minimal relief. He describes the pain as sharp shooting, with occasional numbness to her left hand. The pain worse with ROM.His current pain is 7/10 on the pain scale He notes history of torn left rotator cuff 10 years ago He was evaluated at an urgent care, x-ray was normal, and was prescribed Naproxen and a muscle relaxant; he was issued a sling He requests physical therapy [facility] Medical History COVID Hand numbness History of multiple concussions Left inguinal hernia Normal colonoscopy Partial tear of left subscapularis tendon Surgical History History of appendectomy Family History Paternal Uncle Lung cancer Maternal Grandfather Stroke Social History Housing: House Alcohol intake: current Patient Tobacco Use Status: Never used Tobacco e-Cigarette/Vaping Use: Never Used Second Hand Smoke Exposure: No service: No Current occupational status: employed 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 James Jeter, Shannen Teran, Augustine Baeza and colleagues, with an educational bobo from [employer]. Review of Systems Const Details: Const Denies chills, Denies fatigue, Denies fever(s), Denies headache(s) and Denies weakness ENT Denies dizziness and Denies headache(s) Card Denies chest pain, Denies lightheadedness, Denies dyspnea and Denies other (Palpitations) Resp Denies cough, Denies dyspnea, Denies wheezing and Denies other ( shortness of breath) GI Denies abdominal pain, Denies melena, Denies hematochezia, Denies change in bowel habits, Denies dyspepsia and Denies nausea Denies hematuria and Denies dysuria Musc Reports as per HPI Skin/Breast Denies rash, Denies unusual bruising and Denies wounds Neuro Denies abnormal gait, Denies dizziness, Denies headache(s), Denies memory loss, Denies numbness, Denies Sensory deficit (Neuro), Denies tingling and Denies weakness Psych Denies anxiety, Denies depression, Denies memory loss Endo Denies cold intolerance, Denies fatigue, Denies heat intolerance, Denies polydipsia and Denies polyuria Aller/Immun Denies wheezing Physical exam (Primary Care) Vital Signs: Last Vital Signs Pulse 65 10/16/23 13:11 Resp 13 10/16/23 13:11 BP 110/62 10/16/23 13:11 Pulse Ox 99 10/16/23 13:11 Oxygen Delivery Method Room Air 10/16/23 13:11 BMI result Body Mass Index 31.3 Tobacco/Smoking Status: Tobacco use Status Tobacco use date assessed 04/10/22 10/16/23 13:04 Patient Tobacco Use Status Never used Tobacco 10/16/23 13:04 e-Cigarette/Vaping Use Never Used 10/16/23 13:04 Thrive Assessment: Date of Thrive Assessment Date Thrive assessed 06/21/21 10/16/23 13:04 Const Other: General: no acute distress and well developed Nutritional Appearance: well nourished Orientation/consciousness: patient oriented x3 HENMT Head: Yes normocephalic and Yes atraumatic Eyes General: appearance normal, both eyes and all related structures Pupils: Equal, round and reactive pupils present EOM: EOMs intact bilaterally Resp Effort & Inspection: normal respiratory effort Auscultation: clear to auscultation bilaterally Cardio Rate: regular rate Rhythm: regular rhythm Heart sounds: S1 normal heart sound present, S2 normal heart sound present, no gallops, no murmurs and no rubs GI Palpation (GI): No Abdominal aortic bruit present, Soft to palpation, nontender, No hepatosplenomegaly present and No Rebound tenderness present Auscultation: normal bowel sounds General: Yes no CVA tenderness Back/Spine/Pelvis Back: no CVA tenderness Cervical Spine: cervical ROM normal and No Cervical spine tenderness Thoracic/Lumbar Spine: thoraco-lumbar ROM normal, No pain with thoraco-lumbar ROM, No thoracic spinal tenderness and No lumbar spinal tenderness Extrem General: Yes normal to inspection, No edema and No calf tenderness Left shoulder tenderness with range of motion. No swelling, erythema or overt injury or trauma Skin General: warm and dry. Normal skin color. Normal skin turgor Lesions: no lesions Rashes: no rashes Trauma: no lacerations or abrasions Wounds: no wounds Nails: normal Neuro General: patient oriented x3, gait normal and no focal neuro deficit Cranial nerves: Yes Equal, round and reactive pupils present Cognition (Neuro): normal cognition Gait exam (Neuro): Normal gait present Sensory Exam: No Sensory deficit (Neuro) Psych Appearance: grossly normal Affect: normal affect Attitude: cooperative Thought process: Normal thought process present Assessment and Plan Assessment & Plan (1) Left shoulder pain: Code(s): M25.512 - Pain in left shoulder Plan: Left shoulder pain from weight lifting injury 10 days ago Negative x-ray from urgent care Left shoulder tenderness with range of motion. No swelling, erythema or overt injury or trauma Advised to take naproxen and muscle relaxant as prescribed by urgent care Avoid sports or exercise until healed Warm/cold compresses encouraged Wear sling as needed Referred to PT as requested Encouraged to schedule a transfer of care appointment with a new PCP Return with worsening or new symptoms Verbalized understanding and agreed with treatment plan Orders: Orders PT Evaluation and Treatment Today M25.512 - Pain in left shoulder Coding Level of Care Code Est Pt Level 3 (63368) Diagnoses Left shoulder pain M25.512
[2023-10-16 13:11] VITALS: BP 110/62; PULSE 65; RESP 13; O2SAT 99; BMI 31.3
== END 2023-10-16 13:34 | disposition home or self-care (01) ==
PROVIDERS: PCP Hospitalist; Visit Provider Nurse Practitioner Family
DX: M25.512 Pain in left shoulder (principal)
CPT/HCPCS: 99213

== ENCOUNTER 2023-11-17 14:57 | Outpatient (AMB) | payer OTHER, SELFPAY ==
[2023-11-17 14:59] VITALS: BP 118/70; PULSE 75; RESP 13; TEMP 36.4; O2SAT 98; BMI 31.5
--- NOTE | 2023-11-17 14:59 | A.OFFPC_ITS ---
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 maple trees Allergy (Mild, Uncoded 11/17/23 15:30) congestion Medication List - Last Reconciled 11/17/23 by Karie Vaz CNP multivitamin 1 tab PO DAILY Tobacco use date assessed: 11/17/23 Dental Screening Dental Screen Date: 11/17/23 Did you have a dental visit in the last 12 months?: No Did you have a dental problem in the last 6 months where you did not have access to dental care?: No Was dental information given to patient?: Patient has dentist HPI HPI Comments History of Present Illness0 Details 28-year-old male presents for transfer o f care Her former PCP is FELICIA who is no longer with the practice She has history of anxiety and depression with h/o psychotropic medication x 2 months in 2019 He has been seeing a therapist every other week for the past 4 years He reports controlled anxiety and depression symptoms He has not been exercising since he injured his left shoulder while lifting weights at the gym a month and half ago. He was prescribed Naproxen from an urgent which he took with temporary relief. X-ray was negative. He reports constant 8/10 dull/achy/sharp pain, worse with range of motion. He notes intermittent numbness to the entire left arm. No tingling or loss of sensation He notes history of partial tear of left subscapularis tendon. Cortisone injection was ineffective. 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 1. Little interest or pleasure in doing things: more than half the days 2. Feeling down, depressed, or hopeless: more than half the days 3. Trouble falling or staying asleep, or sleeping too much: more than half the days 4. Feeling tired or having little energy: more than half the days 5. Poor appetite or overeating: several days 6. Feeling bad about yourself - or that you are a failure or have let yourself or your family down: several days 7. Trouble concentrating on things, such as reading the newspaper or watching television: several days 8. Moving or speaking so slowly that other people could have noticed. Or the opposite - being so fidgety or restless that you have been moving around a lot more than usual: not at all 9. Thoughts that you would be better off or of hurting yourself in some way: several days Total score: 12 Depression Screening Interpretation: Positive Depression Screening Follow-up: Existing condition and In treatment Depression Screening Done: Yes 79701 - PHQ-9 Billing: Yes Source: Developed by Drs. James Jeter, Shannen Teran, Augustine Baeza and colleagues, with an educational bobo from [employer]. Thrive Questionnaire Date Thrive assessed: 11/17/23 I am a: Patient What is your living situation today?: I have a steady place to live Within the past 12 months, did the food you bought not last and you didn't have the money to get more?: Never true Within the past 12 months, did you worry whether your food would run out before you got money to buy more?: Never true Do you have trouble paying for medicines?: No Do you have trouble getting transportation to medical appointments?: No Do you have trouble paying your heating and electricity bill?: No Do you have trouble taking care of your child, family member or friend?: No Do you have trouble with day-to-day activities such as bathing, preparing meals, shopping, managing finances, etc.?: No Are you currently unemployed and looking for a job?: No Are you interested in more education?: No Please select the resources that you would like help with: None Currently or been in a relationship where the following occur: no concerns reported THRIVE Score: 0 AUDIT C Alcohol Use Questionnaire (AUDIT-C) 1. How often do you have a drink containing alcohol?: Monthly or less 2. How many drinks containing alcohol do you have on a typical day when you are drinking?: 1 or 2 3. How often do you have six or more drinks on one occasion?: Never Total Score: 1 JAVIER-7 AMB Questionnaire JAVIER-7 Date JAVIER - 7 assessed: 11/17/23 Feeling nervous, anxious, or on edge: 1 = Several days Not being able to stop or control worryin = Several days Worrying too much about different things: 1 = Several days Trouble relaxin = Several days Being so restless that it is hard to sit still: 2 = More than half the days Becoming easily annoyed or irritable: 1 = Several days Feeling afraid as if something awful might happen: 1 = Several days Total JAVIER-7 score (0-4 normal; 5-9 mild; 10-14 moderate; 15-21 severe): 8 Source: Developed by Drs. James Jeter, Shannen Teran, Augustine Baeza and colleagues, with an educational bobo from [employer]. JAVIER-7 Assessment Billing JAVIER-7 Assessment Tool: JAVIER-7 Assessment [id number] Review of Systems Const Details: Const Denies chills, Denies fatigue, Denies fever(s), Denies headache(s) and Denies weakness ENT Denies dizziness and Denies headache(s) Card Denies chest pain, Denies lightheadedness, Denies dyspnea and Denies other (Palpitations) Resp Denies cough, Denies dyspnea, Denies wheezing and Denies other ( shortness of breath) GI Denies abdominal pain, Denies melena, Denies hematochezia, Denies change in bowel habits, Denies dyspepsia and Denies nausea Denies hematuria and Denies dysuria Musc Reports as per HPI Skin/Breast Denies rash, Denies unusual bruising and Denies wounds Neuro Denies abnormal gait, Denies dizziness, Denies headache(s), Denies memory loss, Denies numbness, Denies Sensory deficit (Neuro), Denies tingling and Denies weakness Psych Denies anxiety, Denies depression, Denies memory loss Endo Denies cold intolerance, Denies fatigue, Denies heat intolerance, Denies polydipsia and Denies polyuria Aller/Immun Denies wheezing Physical exam (Primary Care) Vital Signs: Last Vital Signs Temp 97.6 F 11/17/23 14:59 Pulse 75 11/17/23 14:59 Resp 13 11/17/23 14:59 BP 118/70 11/17/23 14:59 Pulse Ox 98 11/17/23 14:59 Oxygen Delivery Method Room Air 11/17/23 14:59 BMI result Body Mass Index 31.5 Tobacco/Smoking Status: Tobacco use Status Tobacco use date assessed 11/17/23 11/17/23 15:06 Patient Tobacco Use Status Never used Tobacco 11/17/23 15:06 e-Cigarette/Vaping Use Never Used 11/17/23 15:06 PHQ-9: PHQ-9 Score PHQ-9: Total score 12 11/17/23 15:10 Depression Screening Interpretation: Positive Depression Screening Follow-up: Existing condition and In treatment Thrive Assessment: Date of Thrive Assessment Date Thrive assessed 11/17/23 11/17/23 15:10 Currently or been in a relationship where the following occur: no concerns reported Const Other: General: no acute distress and well developed Nutritional Appearance: well nourished Orientation/consciousness: patient oriented x3 HENMT Head: Yes normocephalic and Yes atraumatic Eyes General: appearance normal, both eyes and all related structures Pupils: Equal, round and reactive pupils present EOM: EOMs intact bilaterally Resp Effort & Inspection: normal respiratory effort Auscultation: clear to auscultation bilaterally Cardio Rate: regular rate Rhythm: regular rhythm Heart sounds: S1 normal heart sound present, S2 normal heart sound present, no gallops, no murmurs and no rubs GI Palpation (GI): No Abdominal aortic bruit present, Soft to palpation, nontender, No hepatosplenomegaly present and No Rebound tenderness present Auscultation: normal bowel sounds General: Yes no CVA tenderness Back/Spine/Pelvis Back: no CVA tenderness Cervical Spine: cervical ROM normal and No Cervical spine tenderness Thoracic/Lumbar Spine: thoraco-lumbar ROM normal, No pain with thoraco-lumbar ROM, No thoracic spinal tenderness and No lumbar spinal tenderness Extrem General: Yes normal to inspection, No edema and No calf tenderness Limited active and passive range of motion of the left shoulder. Positive open can test Skin General: warm and dry. Normal skin color. Normal skin turgor Lesions: no lesions Rashes: no rashes Trauma: no lacerations or abrasions Wounds: no wounds Nails: normal Neuro General: patient oriented x3, gait normal and no focal neuro deficit Cranial nerves: Yes Equal, round and reactive pupils present Cognition (Neuro): normal cognition Gait exam (Neuro): Normal gait present Sensory Exam: No Sensory deficit (Neuro) Psych Appearance: grossly normal Affect: normal affect Attitude: cooperative Thought process: Normal thought process present Assessment and Plan Assessment & Plan (1) Left shoulder pain: Code(s): M25.512 - Pain in left shoulder Plan: Left shoulder pain x1 month due to weight lifting injury Limited active and passive range of motion of the left shoulder. Positive open can test Likely subacromial pain syndrome, subscapularis tendon injury or tear, rotator cuff tendinitis or tear, labral tear osteoarthritis Naproxen and Flexeril as prescribed Warm/cool compresses encouraged Avoid sports or exercise until healed Referred to physical therapy Follow-up in 1 month for an extended physical exam and labs review Return sooner with worsening or new symptoms Verbalized understanding and agreed with treatment plan (2) Anxiety and depression: Code(s): F41.9 - Anxiety disorder, unspecified; F32.9 - Major depressive disorder, single episode, unspecified Plan: Reports controlled anxiety and depression symptoms on current treatment PHQ-9 and JAVIER-7 scores revealed moderate depression and mild anxiety respectively Continue with psychotherapy as planned Routine exercise encouraged Follow-up with worsening or new symptoms Verbalized understanding and agreed with treatment (3) Laboratory tests ordered as part of a complete physical exam (CPE): Code(s): Z00.00 - Encounter for general adult medical examination without abnormal findings Plan: Fasting labs ordered in preparation of a complete physical exam. Advised to fast for at least 10 hours before getting labs drawn. May drink water Verbalized understanding and agreed with treatment plan. Orders: Orders Complete Blood Count Auto Diff Today Z00.00 - Encounter for general adult medical examination without abnormal findings TSH reflex Free T4 Today Z00.00 - Encounter for general adult medical examination without abnormal findings UA CC w/rflx Micro + Cult Today Z00.00 - Encounter for general adult medical examination without abnormal findings PT Evaluation and Treatment Today M25.512 - Pain in left shoulder Comprehensive [place]. Panel Fast Today Z00.00 - Encounter for general adult medical examination without abnormal findings Lipid Panel Today Z00.00 - Encounter for general adult medical examination without abnormal findings Medications: New naproxen 500 mg PO BID PRN 60 tabs 1RF pain cyclobenzaprine 10 mg PO TID PRN 60 tabs 1RF muscle spasm Coding Level of Care Code Est Pt Level 4 (02150) Diagnoses Left shoulder pain M25.512 Anxiety and depression F41.9; F32.9 Laboratory tests ordered as part of a complete physical exam (CPE) Z00.00 Additional Codes JAVIER-7 Assessment Billing - JAVIER-7 Assessment Tool: JAVIER-7 Assessment [id number] ([id number])
== END 2023-11-17 15:59 | disposition home or self-care (01) ==
PROVIDERS: PCP Hospitalist; Visit Provider Nurse Practitioner Family
DX: M25.512 Pain in left shoulder (principal); F41.9 Anxiety disorder, unspecified; F32.9 Major depressive disorder, single episode, unspecified
CPT/HCPCS: 96127; 99214

== ENCOUNTER 2023-12-17 10:42 | Outpatient (REF) | payer OTHER, SELFPAY ==
[2023-12-17 11:02] LABS: MANUAL DIFF FLAG NO
[2023-12-17 11:51] LABS: Basophils Absolute Auto 0.1 X10*3/uL (0.0-0.2); Basophils Percent Auto 0.9 % (0-2); Eosinophils Absolute Auto 0.3 X10*3/uL (0.0-0.4); Eosinophils Percent Auto 2.9 % (0-4); Hematocrit 44.9 % (42.0-52.0); Hemoglobin 15.8 g/dl (14.0-18.0); Imm Gran Abs Auto 0.06 X10*3/uL (0.00-0.03); Imm Gran Pct Auto 0.6 % (0.0-0.4); Lymphocytes Absolute Auto 2.4 X10*3/uL (1.2-4.9); Lymphocytes Percent Auto 24.6 % (20-40); Mean Corpuscular HGB Conc 35.2 g/dl (31.0-36.0); Mean Corpuscular Hemoglobin 30.5 pg (27.0-33.0); Mean Corpuscular Volume 86.7 fL (80.0-98.0); Mean Platelet Volume 9.3 fL (9.4-12.4); Monocytes Absolute Auto 0.8 X10*3/uL (0.1-1.2); Monocytes Percent Auto 7.7 % (2-11); Neutrophils Absolute Auto 6.1 x10*3/uL (2.0-8.3); Neutrophils Percent Auto 63.3 % (45-73); Platelet Count 305 X10*3/uL (160-400); Red Blood Count 5.18 X10*6/uL (4.60-5.80); Red Cell Distribution Width 11.9 % (11.0-16.0); White Blood Count 9.7 X10*3/uL (4.8-10.8)
[2023-12-17 12:33] LABS: Appearance Urine Clear; Color Urine Yellow; Glucose Urine UA Negative (Negative); Leukocyte Esterase Urine Negative (Negative); Nitrite Urine Negative (Negative); PH 5.5 (5.0-9.0); Specific Gravity - Urine 1.025 (1.005-1.025); Urine Blood Negative (Negative); Urine Ketones Negative (Negative); Urine Protein Negative (Neg-Trace)
[2023-12-17 12:44] LABS: Alanine Aminotransferase 49 U/L (0-40); Albumin Level 4.4 g/dL (3.5-5.0); Alkaline Phosphatase 69 U/L (39-117); Anion Gap 13 (12-20); Aspartate Amino Transferase 24 U/L (5-37); Bilirubin Total 0.6 mg/dL (0.0-1.0); Blood Urea Nitrogen 11 mg/dL (9-16); Calcium 9.7 mg/dL (8.4-10.2); Carbon Dioxide 26 mmol/L (22-29); Chloride 104 mmol/L (96-108); Cholesterol 220 mg/dL (<200); Estimated Glomerular Filt Rate > 60; Glucose Fasting 85 mg/dL (60-99); HDL Cholesterol 32 mg/dL (>40); LDL Cholesterol Calculated 144 mg/dL (<100); Potassium 3.9 mmol/L (3.3-5.1); Sodium 139 mmol/L (135-145); TSH reflex Free T4 0.94 uIU/mL (0.32-4.0); Total Protein 7.9 g/dL (6.5-8.0); Triglycerides 221 mg/dL (<150)
== END 2023-12-17 10:43 | disposition home or self-care (01) ==
LOC: HO.LAB 10:42
PROVIDERS: PCP Nurse Practitioner Family; Visit Provider Nurse Practitioner Family
DX: Z00.00 Encounter for general adult medical examination without abnormal findings (principal)
CPT/HCPCS: 36415; 80053; 80061; 81003; 84443; 85025

== ENCOUNTER 2023-12-22 16:14 | Outpatient (AMB) | payer OTHER, SELFPAY ==
[2023-12-22 16:17] VITALS: BP 122/64; PULSE 83; RESP 13; TEMP 36.4; O2SAT 98; BMI 31.5
--- NOTE | 2023-12-22 16:17 | MHC.PC.OV ---
Vital Signs 12/22/23 16:17 Height 5 ft 8 in Weight 207 lb BMI 31.5 BP 122/64 Blood Pressure Location Rt brachial Position Sitting Respiration 13 Pulse 83 Pulse Source Pulse Oximeter Temp 97.6 F Temp Source Temporal Artery Scan Pulse Oximetry (%) 98 Oxygen Delivery Method Room Air Intake Visit Reasons: CPE Rotary Drier Required: No Accompanied by: Self / Same As Patient Allergies oxycodone Allergy (Intermediate, Verified 12/22/23 16:27) nausea/dry heave alcohol Adverse Reaction (Severe, Verified 12/22/23 16:27) Vomiting dust mites Allergy (Intermediate, Uncoded 12/22/23 16:27) Patient was notified during allergy testing. maple trees Allergy (Mild, Uncoded 12/22/23 16:27) congestion Medication List - Last Reconciled 12/22/23 by Karie Vaz CNP cyclobenzaprine 10 mg PO TID PRN multivitamin 1 tab PO DAILY naproxen 500 mg PO BID PRN Tobacco use date assessed: 11/17/23 Dental Screening Dental Screen Date: 12/22/23 Did you have a dental visit in the last 12 months?: No Did you have a dental problem in the last 6 months where you did not have access to dental care?: No Was dental information given to patient?: Patient has dentist HPI HPI Comments History of Present Illness Details 28-year-old male presents for an extended physical exam She has history of anxiety and depression with h/o psychotropic medication x 2 months in 2019 He admits to taking his medications as prescribed without adverse reactions He has been seeing a therapist, for anxiety and depression, every other week for the past 4 years He reports controlled anxiety and depression symptoms He started PT for persistent left shoulder pain which she has had for 2 months; this is his third week. He reports persistent left shoulder pain and notes that he did not refill naproxen and cyclobenzaprine because they provided short-term relief. He describes the pain as constant dull achy and sharp intermittently He notes that he is sexually active, in a monogamous relationship, and has no concerns for STD Nonsmoker, have not drank alcohol in the past 7-8 months, no recreational drug use He states that he is not up-to-date on the flu vaccine and I don't think i need it [facility] Medical History COVID Hand numbness History of multiple concussions Left inguinal hernia Normal colonoscopy Partial tear of left subscapularis tendon Surgical History History of appendectomy Family History Paternal Uncle Lung cancer Maternal Grandfather Stroke Social History Housing: House Alcohol intake: current Patient Tobacco Use Status: Never used Tobacco e-Cigarette/Vaping Use: Never Used Second Hand Smoke Exposure: No service: No Current occupational status: employed 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 1. Little interest or pleasure in doing things: several days 2. Feeling down, depressed, or hopeless: several days 3. Trouble falling or staying asleep, or sleeping too much: more than half the days 4. Feeling tired or having little energy: more than half the days 5. Poor appetite or overeating: several days 6. Feeling bad about yourself - or that you are a failure or have let yourself or your family down: several days 7. Trouble concentrating on things, such as reading the newspaper or watching television: several days 8. Moving or speaking so slowly that other people could have noticed. Or the opposite - being so fidgety or restless that you have been moving around a lot more than usual: several days 9. Thoughts that you would be better off or of hurting yourself in some way: not at all Total score: 10 Depression Screening Interpretation: Positive Depression Screening Follow-up: Existing condition and In treatment Depression Screening Done: Yes 95848 - PHQ-9 Billing: Yes Source: Developed by Drs. James Jeter, Shannen Teran, Augustine Baeza and colleagues, with an educational bobo from [employer]. Thrive Questionnaire Date Thrive assessed: 11/17/23 AUDIT C Alcohol Use Questionnaire (AUDIT-C) 1. How often do you have a drink containing alcohol?: Monthly or less 2. How many drinks containing alcohol do you have on a typical day when you are drinking?: 1 or 2 3. How often do you have six or more drinks on one occasion?: Never Total Score: 1 JAVIER-7 AMB Questionnaire JAVIER-7 Date JAVIER - 7 assessed: 12/22/23 Feeling nervous, anxious, or on edge: 1 = Several days Not being able to stop or control worryin = Several days Worrying too much about different things: 1 = Several days Trouble relaxin = Several days Being so restless that it is hard to sit still: 1 = Several days Becoming easily annoyed or irritable: 1 = Several days Feeling afraid as if something awful might happen: 1 = Several days Total JAVIER-7 score (0-4 normal; 5-9 mild; 10-14 moderate; 15-21 severe): 7 Source: Developed by Drs. James Jeter, Shannen Teran, Augustine Baeza and colleagues, with an educational bobo from [employer]. JAVIER-7 Assessment Billing JAVIER-7 Assessment Tool: JAVIER-7 Assessment 58009 Review of Systems Const Details: Denies chills, Denies fatigue, Denies fever(s), Denies headache(s) and Denies weakness HEENT Denies change in vision, Denies dizziness, Denies headache(s), Denies hearing loss, Denies nasal congestion, Denies sinus pain, Denies sinus pressure and Denies sore throat Card Denies chest pain, Denies lightheadedness, Denies dyspnea and Denies other (palpitations) Resp Denies cough, Denies dyspnea and Denies wheezing GI Denies abdominal pain, Denies melena, Denies hematochezia, Denies change in bowel habits, Denies dyspepsia and Denies nausea Denies hematuria and Denies dysuria Musc Reports as per HPI Skin/Breast Denies rash, Denies unusual bruising and Denies wounds Neuro Denies abnormal gait, Denies dizziness, Denies headache(s), Denies memory loss, Denies numbness, Denies Sensory deficit (Neuro), Denies tingling and Denies weakness Psych Denies anxiety, Denies depression and Denies memory loss Endo Denies cold intolerance, Denies fatigue, Denies heat intolerance, Denies polydipsia and Denies polyuria [place]/Lymph Denies easy bleeding and Denies easy bruising Aller/Immun Denies wheezing Physical exam (Primary Care) Vital Signs: Last Vital Signs Temp 97.6 F 12/22/23 16:17 Pulse 83 12/22/23 16:17 Resp 13 12/22/23 16:17 BP 122/64 12/22/23 16:17 Pulse Ox 98 12/22/23 16:17 Oxygen Delivery Method Room Air 12/22/23 16:17 BMI result Body Mass Index 31.5 Tobacco/Smoking Status: Tobacco use Status Tobacco use date assessed 11/17/23 12/22/23 16:24 Patient Tobacco Use Status Never used Tobacco 12/22/23 16:24 e-Cigarette/Vaping Use Never Used 12/22/23 16:24 PHQ-9: PHQ-9 Score PHQ-9: Total score 10 12/22/23 16:24 Depression Screening Interpretation: Positive Depression Screening Follow-up: Existing condition and In treatment Thrive Assessment: Date of Thrive Assessment Date Thrive assessed 11/17/23 12/22/23 16:24 Const Other: General: no acute distress, well developed, alert and awake Nutritional Appearance: well nourished Orientation/consciousness: patient oriented x3 HENMT Head: Yes normocephalic and Yes atraumatic Ears: hearing grossly normal bilaterally and TM's normal bilaterally General nose exam: Normal external nose present and Normal nares present Mouth: Normal oral and palatal mucosa present and moist mucous membranes Teeth and gingiva: dentition normal Throat: Yes oropharynx normal Eyes Pupils: Equal, round and reactive pupils present and Pupil accommodation reflex normal EOM: EOMs intact bilaterally Neck Neck: Yes normal visual inspection, Yes no lymphadenopathy and Yes trachea midline Thyroid: Thyroid normal Carotids: no bruits Lymphatic: no lymphadenopathy noted Chest Chest palpation & inspection: normal inspection of the chest Resp Effort & Inspection: normal respiratory effort Auscultation: clear to auscultation bilaterally Cardio Rate: regular rate Rhythm: regular rhythm Heart sounds: S1 normal heart sound present, S2 normal heart sound present, no gallops, no murmurs and no rubs Bruits: no abdominal aortic bruits and no carotid bruits GI Palpation (GI): No Abdominal aortic bruit present, Soft to palpation, nontender, No hepatosplenomegaly present and No Rebound tenderness present Auscultation: normal bowel sounds General: Yes no CVA tenderness Back/Spine/Pelvis Back: no CVA tenderness Cervical Spine: cervical ROM normal and No Cervical spine tenderness Thoracic/Lumbar Spine: thoraco-lumbar ROM normal, No pain with thoraco-lumbar ROM, No thoracic spinal tenderness and No lumbar spinal tenderness Skin General: warm and dry. Normal skin color. Normal skin turgor Lesions: no lesions Rashes: no rashes Trauma: no lacerations or abrasions Wounds: no wounds Nails: normal Neuro General: patient oriented x3, gait normal and CN's II-XI intact bilaterally Cranial nerves: Yes Equal, round and reactive pupils present Cognition (Neuro): normal cognition Gait exam (Neuro): Normal gait present Motor exam (neuro): 5/5 motor strength present throughout Sensory Exam: No Sensory deficit (Neuro) Deep tendon reflexes (DTR's): Right patellar reflex intensity grade: 2+ and Left patellar reflex intensity grade: 2+ Extrem General: Yes normal to inspection, No edema and No calf tenderness Limited ROM of left shoulder; no overt injury or trauma Psych Appearance: grossly normal Affect: normal affect Attitude: cooperative Thought process: Normal thought process present Assessment and Plan Assessment & Plan (1) Normal physical exam: Code(s): Z00.00 - Encounter for general adult medical examination without abnormal findings Plan: No significant physical restrictions or limitations Continue current treatment regimen Follow-up with PT and psychotherapy as planned Healthy diet and routine exercise encouraged Return in 2 months for hyperlipidemia or sooner with symptoms or concerns Verbalized understanding and agreed with treatment plan (2) Hyperlipidemia: Code(s): E78.5 - Hyperlipidemia, unspecified Plan: Recent labs reviewed with the patient. Unremarkable findings except for slightly elevated ALT, elevated triglycerides, total cholesterol, LDL, and low HDL, 221, 220, 144, and 32 respectively He declines medication treatment at this time and will initial try diet and exercise Advised to limit foods high in saturated fat and avoid foods high in trans fat Routine exercise encouraged Will recheck lipid panel in 2 months Advised to fast for 10-12 hours, may drink water only, and get blood work done before his next visit Follow-up in 2 months Verbalized understanding and agreed with treatment plan (3) Left shoulder pain: Code(s): M25.512 - Pain in left shoulder Plan: Persistent left shoulder pain for the past 2 months Limited ROM of left shoulder; no overt injury or trauma Take naproxen and cyclobenzaprine as prescribed Warm/cold compresses encouraged Continue weekly PT Follow-up with worsening or new symptoms Verbalized understanding and agreed with treatment plan (4) Vaccine counseling: Code(s): Z71.85 - Encounter for immunization safety counseling Plan: He has not up-to-date on the flu vaccine Instructed on importance of vaccination and encouraged to get vaccinated for flu He declines vaccination at this time Orders: Orders Lipid Panel 2 Months E78.5 - Hyperlipidemia, unspecified Coding Level of Care Code Est Pt Prev Care 18-39y(47461) Diagnoses Normal physical exam Z00.00 Hyperlipidemia E78.5 Left shoulder pain M25.512 Vaccine counseling Z71.85 Additional Codes JAVIER-7 Assessment Billing - JAVIER-7 Assessment Tool: JAVIER-7 Assessment [id number] ([id number])
== END 2023-12-22 17:56 | disposition home or self-care (01) ==
PROVIDERS: PCP Hospitalist; Visit Provider Nurse Practitioner Family
DX: Z00.00 Encounter for general adult medical examination without abnormal findings (principal); E78.5 Hyperlipidemia, unspecified; M25.512 Pain in left shoulder; Z71.85 Encounter for immunization safety counseling
CPT/HCPCS: 99395

== ENCOUNTER 2024-01-18 17:03 | Outpatient (AMB) | payer OTHER, SELFPAY ==
[2024-01-18 17:08] VITALS: BP 120/70; PULSE 83; O2SAT 98; BMI 30.3
--- NOTE | 2024-01-18 17:08 | A.OFFPC_ITS ---
Vital Signs 01/18/24 17:08 Height 5 ft 8 in Weight 199 lb 2 oz BMI 30.3 BP 120/70 Blood Pressure Location Lt brachial Position Sitting Pulse 83 Pulse Source Pulse Oximeter Pulse Oximetry (%) 98 Oxygen Delivery Method Room Air Intake Visit Reasons: Follow up/Hi Cholesterol and shoulder pain Intake Note: Patient is here for follow up on high blood pressure and left shoulder pain. Allergies oxycodone Allergy (Intermediate, Verified 01/18/24 17:11) nausea/dry heave alcohol Adverse Reaction (Severe, Verified 01/18/24 17:11) Vomiting dust mites Allergy (Intermediate, Uncoded 01/18/24 17:11) Patient was notified during allergy testing. maple trees Allergy (Mild, Uncoded 01/18/24 17:11) congestion Tobacco use date assessed: 01/18/24 Dental Screening Dental Screen Date: 12/22/23 HPI HPI Comments History of Present Illness Details 29-year-old male presents for left shoul lucian pain follow up. He injured the shoulder from doing bench press at the gym about 4 months ago. He notes that the pain as been constant dull/aching, 6/10 at baseline, intensifies with ROM. He has completed about 12 sessions of PT without improvement; he has 10 more sessions left. He notes that cyclobenzaprine and naproxen have been effective only for short-term relief of severe symptoms. He states that he has been doing cardio workouts and has not been lifting weights since the injury. He was informed by PT that more imaging may be necessary. 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 James Jeter, Shannen Teran, Augustine Baeza and colleagues, with an educational bobo from [employer]. Review of Systems Const Details: Const Denies chills, Denies fatigue, Denies fever(s), Denies headache(s) and Denies weakness ENT Denies dizziness and Denies headache(s) Card Denies chest pain, Denies lightheadedness, Denies dyspnea and Denies other (Palpitations) Resp Denies cough, Denies dyspnea, Denies wheezing and Denies other ( shortness of breath) GI Denies abdominal pain, Denies melena, Denies hematochezia, Denies change in bowel habits, Denies dyspepsia and Denies nausea Denies hematuria and Denies dysuria Musc Reports as per HPI Skin/Breast Denies rash, Denies unusual bruising and Denies wounds Neuro Denies abnormal gait, Denies dizziness, Denies headache(s), Denies memory loss, Denies numbness, Denies Sensory deficit (Neuro), Denies tingling and Denies weakness Psych Denies anxiety, Denies depression, Denies memory loss Endo Denies cold intolerance, Denies fatigue, Denies heat intolerance, Denies polydipsia and Denies polyuria Aller/Immun Denies wheezing Physical exam (Primary Care) Tobacco/Smoking Status: Tobacco use Status Tobacco use date assessed 11/17/23 12/22/23 16:24 Patient Tobacco Use Status Never used Tobacco 12/22/23 16:24 e-Cigarette/Vaping Use Never Used 12/22/23 16:24 Thrive Assessment: Date of Thrive Assessment Date Thrive assessed 11/17/23 12/22/23 16:24 Const Other: General: no acute distress and well developed Nutritional Appearance: well nourished Orientation/consciousness: patient oriented x3 HENMT Head: Yes normocephalic and Yes atraumatic Eyes General: appearance normal, both eyes and all related structures Pupils: Equal, round and reactive pupils present EOM: EOMs intact bilaterally Resp Effort & Inspection: normal respiratory effort Auscultation: clear to auscultation bilaterally Cardio Rate: regular rate Rhythm: regular rhythm Heart sounds: S1 normal heart sound present, S2 normal heart sound present, no gallops, no murmurs and no rubs GI Palpation (GI): No Abdominal aortic bruit present, Soft to palpation, nontender, No hepatosplenomegaly present and No Rebound tenderness present Auscultation: normal bowel sounds General: Yes no CVA tenderness Back/Spine/Pelvis Back: no CVA tenderness Cervical Spine: cervical ROM normal and No Cervical spine tenderness Thoracic/Lumbar Spine: thoraco-lumbar ROM normal, No pain with thoraco-lumbar ROM, No thoracic spinal tenderness and No lumbar spinal tenderness Extrem General: Yes normal to inspection, No edema and No calf tenderness Tenderness with Limited ROM of left shoulder Skin General: warm and dry. Normal skin color. Normal skin turgor Lesions: no lesions Neuro General: patient oriented x3, gait normal and no focal neuro deficit Cranial nerves: Yes Equal, round and reactive pupils present Cognition (Neuro): normal cognition Gait exam (Neuro): Normal gait present Sensory Exam: No Sensory deficit (Neuro) Psych Appearance: grossly normal Affect: normal affect Attitude: cooperative Thought process: Normal thought process present Assessment and Plan Assessment & Plan (1) Left shoulder pain: Code(s): M25.512 - Pain in left shoulder Plan: Left shoulder pain x4 months Not improving with physical therapy Short-term relief with cyclobenzaprine and naproxen Tenderness with Limited ROM of left shoulder. No overt injury or trauma Continue current treatment regimen Advised to continue the avoid weight lifting and sports Referred to [facility] orthoped[facility] Follow-up in 1 month for hyperlipidemia or return sooner with worsening or new symptoms Verbalized understanding and agreed with treatment plan Coding Level of Care Code Est Pt Level 4 (46728) Diagnoses Left shoulder pain M25.512
== END 2024-01-18 17:28 | disposition home or self-care (01) ==
PROVIDERS: PCP Nurse Practitioner Family; Visit Provider Nurse Practitioner Family
DX: M25.512 Pain in left shoulder (principal)
CPT/HCPCS: 99214

== ENCOUNTER 2024-02-09 08:57 | Outpatient (REF) | payer OTHER, SELFPAY ==
--- NOTE | ~2024-02-09 | XR_ITS ---
EXAMINATION: XR SHOULDER, LEFT CLINICAL INFORMATION: Pain in left shoulder COMPARISON: 07/08/2016 TECHNIQUE: AP external rotation, Grashey, scapular Y, and axillary views of the left shoulder. FINDINGS: There is 0.9 cm calcification adjacent to the greater tuberosity most likely calcified tendinopathy. Glenohumeral joint and acromioclavicular joints unremarkable. XR/XR shoulder LT min 2V IMPRESSION: Calcified tendinopathy.
== END 2024-02-09 08:58 | disposition home or self-care (01) ==
LOC: HO.HOSX 08:57
PROVIDERS: Visit Provider Physician Assistant
DX: M75.32 Calcific tendinitis of left shoulder (principal); M75.102 Unspecified rotator cuff tear or rupture of left shoulder, not specified as traumatic
CPT/HCPCS: 73030; 99202

== ENCOUNTER 2024-02-09 09:12 | Outpatient (AMB) | payer OTHER, SELFPAY ==
--- NOTE | 2024-02-09 09:17 | MHC.OFFVIS ---
Vital Signs 02/09/24 09:23 Height 5 ft 8 in Weight 199 lb BMI 30.3 Intake Visit Reasons: New Pt - left shoulder pain Intake Note: Alexander is a 29 year old right hand dominant male who presents today as a new patient for a evaluation of his left shoulder pain. Patient reports previous left shoulder injury about 8-10 years ago, no surgery . He states that his pain is mainly at the base of the left shoulder. Describes pain as dull, achy, 6-10 pain scale, pain increases with movement causing shooting pain. Stores [employer] Required: No Accompanied by: Self / Same As Patient Allergies oxycodone Allergy (Intermediate, Verified 02/09/24 09:17) nausea/dry heave alcohol Adverse Reaction (Severe, Verified 02/09/24 09:17) Vomiting dust mites Allergy (Intermediate, Uncoded 02/09/24 09:17) Patient was notified during allergy testing. maple trees Allergy (Mild, Uncoded 02/09/24 09:17) congestion HPI HPI New Pt - left shoulder pain : Details: 29-year-old right hand dominant male who presents in the office today, as a new patient, for an evaluation of chronic left shoulder pain. Patient has been seen multiple times by a PCP in regard to left shoulder pain. 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 He reported diminished ROM. He was evaluated by Urgent Care shortly after and was prescribed Naproxen, a muscle relaxer, and placed in a sling; per PCP note. During PCP encounter the patient requested to be referred to physical therapy. He was most recently seen by his PCP on 01/18/2024 when he reported completion of 12 sessions of physical therapy with no improvement; with 10 sessions remaining. He noted that cyclobenzaprine and naproxen have been effective only for short-term relief of severe symptoms. While in the office today the patient reports he previously injured the left shoulder about 8-10 years ago at the supraspinatus. He denies a history of surgeries. He reports his pain is mainly at the base of the left shoulder. He describes it as dull and achy. Reports a 6-10 on the pain scale. Claims to have an increase in pain with movement, which causes the pain to be shooting. He states he has had pain for 4 months. Reports the pain redating throughout the arm, which caused him to not be able to move the shoulder. Confirms attending PT for 2 months with no improvement. Patient has a history of cortisone injections in the past, per PCP note. 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 Current occupational exposures/hazards: No Cognitive needs: No Hearing needs: No Vision needs: No Review of Systems Const All systems reviewed & are unremarkable except as noted in HPI and below Physical Exam Vital Signs: BMI result Body Mass Index 30.3 Const General: cooperative and no acute distress Orientation/consciousness: patient oriented x3 Resp Effort & Inspection: normal respiratory effort and able to speak in complete sentences Cardio Peripheral pulses: Peripheral pulses 2+ throughout Skin General skin exam: no rashes or lesions noted Neuro General: patient oriented x3 Extrem Other: Left shoulder: Full ROM in all planes but has significant pain past 90 degrees with forward flexion and abduction. Able to reach T-12. Pain with cross-body reach. Slight weakness with empty can. Negative drop arm. NVI. Assessment & Plan Assessment & Plan (1) Calcific tendonitis of left shoulder: Code(s): M75.32 - Calcific tendinitis of left shoulder Category: Medical (2) Painful arc syndrome of left shoulder: Code(s): M75.102 - Unspecified rotator cuff tear or rupture of left shoulder, not specified as traumatic Category: Medical Plan Mr. Benavidez is a 29-year-old right hand dominant male who presents in the office today, as a new patient, for an evaluation of chronic left shoulder pain. Patient has been seen multiple times by a PCP in regard to left shoulder pain. 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 He reported diminished ROM. He was evaluated by Urgent Care shortly after and was prescribed Naproxen, a muscle relaxer, and placed in a sling; per PCP note. During PCP encounter the patient requested to be referred to physical therapy. He was most recently seen by his PCP on 01/18/2024 when he reported completion of 12 sessions of physical therapy with no improvement; with 10 sessions remaining. He noted that cyclobenzaprine and naproxen have been effective only for short-term relief of severe symptoms. While in the office today the patient reports he previously injured the left shoulder about 8-10 years ago at the supraspinatus. He denies a history of surgeries. He reports his pain is mainly at the base of the left shoulder. He describes it as dull and achy. Reports a 6-10 on the pain scale. Claims to have an increase in pain with movement, which causes the pain to be shooting. He states he has had pain for 4 months. Reports the pain redating throughout the arm, which caused him to not be able to move the shoulder. Confirms attending PT for 2 months with no improvement. Patient has a history of cortisone injections in the past, per PCP note. Discussed the role of cortisone injections, but we will defer at this time due to age and wanting to move forward with an MRI. An order for an MRI was made to further investigate the integrity of the left shoulder and surrounding structures. Follow up will be after the MRI is obtained with Dr. Lopez in the office, or sooner if needed. Orders: Orders XR shoulder LT min 2V Today M25.519 - Pain in unspecified shoulder MR shoulder LT wo con Today M75.102 - Unspecified rotator cuff tear or rupture of left shoulder, not specified as traumatic, M75.32 - Calcific tendinitis of left shoulder Patient Instructions: Scribed by Jennifer Tiuts territory sales manager medical, for Nenita Hale PA-C on 02/09/2024 at 9:29 am, EST. Coding Level of Care Code New Pt Level 4 (09269) Diagnoses Calcific tendonitis of left shoulder M75.32 Painful arc syndrome of left shoulder M75.102
[2024-02-09 09:23] VITALS: BMI 30.3
== END 2024-02-09 09:34 | disposition home or self-care (01) ==
PROVIDERS: PCP Nurse Practitioner Family; Visit Provider Physician Assistant
DX: M75.32 Calcific tendinitis of left shoulder (principal); M75.102 Unspecified rotator cuff tear or rupture of left shoulder, not specified as traumatic
CPT/HCPCS: 99204

== ENCOUNTER 2024-03-14 18:14 | Outpatient (REF) | payer OTHER, SELFPAY ==
--- NOTE | ~2024-03-14 | MR_ITS ---
EXAMINATION: MR SHOULDER WITHOUT CONTRAST, LEFT CLINICAL INFORMATION: Left shoulder pain and numbness. Weightlifting injury in September 2023. Persistent pain, tingling, numbness. Intermittent pain with motion. Rotator cuff tendon tear. COMPARISON: Left shoulder radiographs dated 02/09/2024 and MRI dated 09/17/2016. TECHNIQUE: MRI of the shoulder without contrast was performed on a high-field scanner. FINDINGS: ROTATOR CUFF: Within the periphery of the distal supraspinatus tendon there is lobulated low T1/T2 signal measuring approximately 1.4 x 0.4 x 0.5 cm. Minimal adjacent edema. Findings are consistent with calcific tendinitis. No measurable rotator cuff tendon tear. The previously seen tear is not identified on the current study. No muscle atrophy or fatty infiltration. BICEPS: Intact. CORACOACROMIAL ARCH: The undersurface of the acromion is curved with no subacromial spur. [id number] acromioclavicular osteoarthritis. Fluid within the subacromial-subdeltoid bursa with minimal edema, consistent with minimal bursitis. LABRUM/CAPSULE: No labral tear. Intact joint capsule. GLENOHUMERAL JOINT/MARROW: Unremarkable. MR/MR shoulder LT wo con IMPRESSION: 1. Distal supraspinatus calcific tendinitis with minimal adjacent edema. No measurable rotator cuff tendon tear. The previously seen tear is not identified on the current study. 2. Okxw-rb-ggxqlmzr acromioclavicular osteoarthritis. 3. Minimal subacromial-subdeltoid bursitis.
== END 2024-03-14 18:15 | disposition home or self-care (01) ==
LOC: HO.MRI 18:14
PROVIDERS: PCP Nurse Practitioner Family; Visit Provider Physician Assistant
DX: M75.102 Unspecified rotator cuff tear or rupture of left shoulder, not specified as traumatic (principal); M75.32 Calcific tendinitis of left shoulder
CPT/HCPCS: 73221

== ENCOUNTER 2024-04-01 11:51 | Outpatient (AMB) | payer OTHER, SELFPAY ==
--- NOTE | 2024-04-01 11:52 | MHC.OFFVIS ---
Intake Visit Reasons: OV-MRI Shoulder LT-review Intake Note: This is a 29 year old male that presents for a left shoulder MRI review. He reports increased pain. Allergies oxycodone Allergy (Intermediate, Verified 04/01/24 11:53) nausea/dry heave alcohol Adverse Reaction (Severe, Verified 04/01/24 11:53) Vomiting dust mites Allergy (Intermediate, Uncoded 04/01/24 11:53) Patient was notified during allergy testing. maple trees Allergy (Mild, Uncoded 04/01/24 11:53) congestion Medication List - Last Reconciled 04/01/24 by Jia Muir, ANTONIO cyclobenzaprine 10 mg PO TID PRN multivitamin 1 tab PO DAILY naproxen 500 mg PO BID PRN HPI HPI OV-MRI Shoulder LT-review: Details: Alexander is a 29-year-old with a six-month history of left shoulder pain. Describes pain with overhead activity and at night and whenever he tries to be more active. He has done physical therapy without benefit and has not had any injections recently. His radiograph showed calcific tendinitis and a recent MRI confirmed this. He describes subdeltoid type pain with abduction. He denies any specific injury. 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 Negative lag pain but negative external rotation negative Irwin's negative cross-body adduction Results Reviewed Results Reviewed: MRI results: 1. Distal supraspinatus calcific tendinitis with minimal adjacent edema. No measurable rotator cuff tendon tear. The previously seen tear is not identified on the current study. 2. Vici-vk-qmzprvvx acromioclavicular osteoarthritis. 3. Minimal subacromial-subdeltoid bursitis. Assessment & Plan Assessment & Plan (1) Calcific tendonitis of left shoulder: Code(s): M75.32 - Calcific tendinitis of left shoulder Category: Medical Plan: This is a 29-year-old gentleman with rotator cuff calcific tendinitis of the left shoulder. This has been ongoing for 6 months and is painful and limiting the quality of his life. I discussed treatment options including surgical and nonsurgical treatments. At this time I recommend a ultrasound guided injection into the area of calcification in the supraspinatus tendon. If this is unhelpful we can consider surgical intervention but I think surgery would require essentially a rotator cuff repair and a lengthy recovery and in someone who is 29 and has no evidence of significant rotator cuff tearing on MRI this should be a last resort. He expressed understanding and we will proceed forward accordingly. Coding Level of Care Code Est Pt Level 4 (96081) Diagnoses Calcific tendonitis of left shoulder M75.32
== END 2024-04-01 12:05 | disposition home or self-care (01) ==
PROVIDERS: PCP Nurse Practitioner Family; Visit Provider Orthopaedic Surgery
DX: M75.32 Calcific tendinitis of left shoulder (principal)
CPT/HCPCS: 99214

== ENCOUNTER → 2024-04-01 11:51 | Outpatient (BNVA) | payer OTHER, SELFPAY | PROVIDERS: PCP Nurse Practitioner Family; Visit Provider Orthopaedic Surgery | DX: M75.32 Calcific tendinitis of left shoulder (principal) | CPT/HCPCS: 99212 ==

== ENCOUNTER 2024-05-20 11:37 | Outpatient (AMB) | payer OTHER, SELFPAY ==
--- NOTE | 2024-05-20 11:39 | A.OFFVIS_ITS ---
Vital Signs 05/20/24 11:40 Height 5 ft 8 in Weight 199 lb BMI 30.3 BP 119/77 Blood Pressure Location Lt brachial Position Sitting Respiration 14 Pulse 73 Pulse Source Pulse Oximeter Pulse Oximetry (%) 96 Oxygen Delivery Method Room Air Intake Visit Reasons: Calcific Tendinitis of Left Shoulder/Inj Allergies oxycodone Allergy (Intermediate, Verified 05/20/24 11:42) nausea/dry heave alcohol Adverse Reaction (Severe, Verified 05/20/24 11:42) Vomiting dust mites Allergy (Intermediate, Uncoded 05/20/24 11:42) Patient was notified during allergy testing. maple trees Allergy (Mild, Uncoded 05/20/24 11:42) congestion Medication List - Last Reconciled 05/20/24 by Lainey Rocha LPN cyclobenzaprine 10 mg PO TID PRN multivitamin 1 tab PO DAILY naproxen 500 mg PO BID PRN HPI HPI Calcific Tendinitis of Left Shoulder/Inj: Details: 29-year-old male who presents today to the office for evaluation of calcific tendinitis of left shoulder. He has an eight-month history of left shoulder pain. He describes his pain with overhead activity, at night, and whenever he tries to be more active. It is painful and limiting the quality of his life. He has done physical therapy without benefit and has not had any injections recently. He had a partial rotator cuff tear in 2016. He had bone spur in his right shoulder when he was 19 years old. He has been doing exercises for past 10 years. He used to drink alot of milk. His radiograph showed calcific tendinitis and a recent MRI confirmed this. He describes subdeltoid type pain with abduction. He denies any specific injury. 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 Alert and oriented. Mood and affect appropriate. Follows and participates in conversation appropriately. Respiratory effort is unlabored. Able to transition from sit to stand unassisted. Ambulates with bilaterally normal heel strike and toe off. Shoulder range of motion is limited and painful. Office Procedures Joint Injection/Aspiration Joint Injection/Aspiration Details: Left peritendinous supraspinatus tendon injection, US guided. After obtaining written consent, pre-procedure blood pressure and pulse were recorded and are in the nursing record for review. The site was prepped using aseptic technique and site was prepped using sterile technique. A 25-gauge needle, 20 ml of Kenalog and 5 ml of normal saline was injected on the left side using posterolateral approach. Coding Details: An ultrasound image of the injection was taken and stored in the permanent record. 43834 - Acromioclavicular with ultrasound guidance (Left) Procedure code (CPT) selection complete Results Reviewed Results Reviewed: 03/14/24: MR SHOULDER WITHOUT CONTRAST, LEFT FINDINGS: ROTATOR CUFF: Within the periphery of the distal supraspinatus tendon there is lobulated low T1/T2 signal measuring approximately 1.4 x 0.4 x 0.5 cm. Minimal adjacent edema. Findings are consistent with calcific tendinitis. No measurable rotator cuff tendon tear. The previously seen tear is not identified on the current study. No muscle atrophy or fatty infiltration. BICEPS: Intact. CORACOACROMIAL ARCH: The undersurface of the acromion is curved with no subacromial spur. Xxmf-ff-[id number] acromioclavicular osteoarthritis. Fluid within the subacromial-subdeltoid bursa with minimal edema, consistent with minimal bursitis. LABRUM/CAPSULE: No labral tear. Intact joint capsule. GLENOHUMERAL JOINT/MARROW: Unremarkable. IMPRESSION: 1. Distal supraspinatus calcific tendinitis with minimal adjacent edema. No measurable rotator cuff tendon tear. The previously seen tear is not identified on the current study. 2. Wowh-kp-yrkpqdsv acromioclavicular osteoarthritis. 3. Minimal subacromial-subdeltoid bursitis. 02/09/24: XR SHOULDER, LEFT FINDINGS: There is 0.9 cm calcification adjacent to the greater tuberosity most likely calcified tendinopathy. Glenohumeral joint and acromioclavicular joints unremarkable. IMPRESSION: Calcified tendinopathy. Assessment & Plan Assessment & Plan (1) Calcific tendonitis of left shoulder: Code(s): M75.32 - Calcific tendinitis of left shoulder Category: Medical (2) Painful arc syndrome of left shoulder: Code(s): M75.102 - Unspecified rotator cuff tear or rupture of left shoulder, not specified as traumatic Category: Medical Plan Patient is status post left peritendinous supraspinatus tendon injection, US guided. Patient tolerated procedure well and was discharged home in stable condition with discharge instructions.? All questions were answered. The patient will follow up in two months to assess his response to the injection. If this is not helpful, we can consider a trial of prolotherapy with dextrose. We discussed PRP injection as well, but he would like to defer that at this time. In the future, we can consider PNS therapy as well if allowed by his insurance. Scribed for Dr. Plunkett by Kenneth Pyle, medical records receptionist, on 05/20/2024. I, Dr. Plunkett, have personally reviewed and agree with the information entered by the scribe. Coding Level of Care Code New Pt Level 4 (44950) Diagnoses Calcific tendonitis of left shoulder M75.32 Painful arc syndrome of left shoulder M75.102 CPT Codes Coding - Joint 6: 38339 - Acromioclavicular with ultrasound guidance ([id number])
[2024-05-20 11:40] VITALS: BP 119/77; PULSE 73; RESP 14; O2SAT 96; BMI 30.3
== END 2024-05-20 11:56 | disposition home or self-care (01) ==
PROVIDERS: PCP Nurse Practitioner Family; Referring Provider Orthopaedic Surgery; Visit Provider Internal Medicine
DX: M75.32 Calcific tendinitis of left shoulder (principal); M75.102 Unspecified rotator cuff tear or rupture of left shoulder, not specified as traumatic
CPT/HCPCS: 20606; 99204

== ENCOUNTER → 2024-05-20 11:37 | Outpatient (BNVA) | payer OTHER, SELFPAY | PROVIDERS: PCP Nurse Practitioner Family; Referring Provider Orthopaedic Surgery; Visit Provider Internal Medicine | DX: M75.32 Calcific tendinitis of left shoulder (principal); M75.102 Unspecified rotator cuff tear or rupture of left shoulder, not specified as traumatic | CPT/HCPCS: 20606; 99202; J2795; J3301 ==

== ENCOUNTER 2024-07-20 10:50 | Outpatient (AMB) | payer OTHER, SELFPAY ==
--- NOTE | 2024-07-20 11:09 | MHC.OFFVIS ---
Vital Signs 07/20/24 11:10 Height 5 ft 8 in Weight 190 lb BMI 28.9 BP 132/80 Blood Pressure Location Lt brachial Position Sitting Respiration 14 Pulse 71 Pulse Source Pulse Oximeter Pulse Oximetry (%) 97 Oxygen Delivery Method Room Air Intake Visit Reasons: Follow Up Allergies oxycodone Allergy (Intermediate, Verified 07/20/24 11:11) nausea/dry heave alcohol Adverse Reaction (Severe, Verified 07/20/24 11:11) Vomiting dust mites Allergy (Intermediate, Uncoded 07/20/24 11:11) Patient was notified during allergy testing. maple trees Allergy (Mild, Uncoded 07/20/24 11:11) congestion Medication List - Last Reconciled 07/20/24 by Lainey Rocha LPN cyclobenzaprine 10 mg PO TID PRN magnesium 250 mg PO DAILY multivitamin 1 tab PO DAILY naproxen 500 mg PO BID PRN HPI HPI Follow Up: Details: 29-year-old male who presents today to the office for s/p left peritendinous supraspinatus tendon injection. The patient reports 20-30% relief following the procedure. He reports his ROM has improved and the dull, aching pain is less frequent but still present, gets random flareups. He rates his pain at 6/10 in intensity. 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 He states he had PT in March and April, which helped with shooting pain but has not had complete improvement with his pain. Past procedures 05/20/24: Left peritendinous supraspinatus tendon injection: 20-30% relief. 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 Alert and oriented. Mood and affect appropriate. Follows and participates in conversation appropriately. Respiratory effort is unlabored. Able to transition from sit to stand unassisted. Ambulates with bilaterally normal heel strike and toe off. Assessment & Plan Assessment & Plan (1) Calcific tendonitis of left shoulder: Code(s): M75.32 - Calcific tendinitis of left shoulder Category: Medical Plan Suboptimal response to a steroid injection. Will schedule for a left supraspinatus tendon injection with dextrose, ultrasound guided. Discussed the risks and benefits of the procedure with the patient in detail. All questions were answered. The patient is on board with the plan. Recommended?physical?therapy?with?ultrasound?therapy. Referral provided for chiropractor for consideration of shockwave therapy. Scribed for Dr. Plunkett by Tommy medical collections representative, on 07/20/2024. I, Dr. Plunkett, have personally reviewed and agree with the information entered by the scribe. Orders: Orders PT Evaluation and Treatment 07/20/24 M75.32 - Calcific tendinitis of left shoulder Referrals Chiropractic Referral M75.32 - Calcific tendinitis of left shoulder Coding Level of Care Code Est Pt Level 3 (74749) Diagnoses Calcific tendonitis of left shoulder M75.32
[2024-07-20 11:10] VITALS: BP 132/80; PULSE 71; RESP 14; O2SAT 97; BMI 28.9
== END 2024-07-20 11:58 | disposition home or self-care (01) ==
PROVIDERS: PCP Nurse Practitioner Family; Visit Provider Internal Medicine
DX: M75.32 Calcific tendinitis of left shoulder (principal)
CPT/HCPCS: 99213

== ENCOUNTER → 2024-07-20 10:50 | Outpatient (BNVA) | payer OTHER, SELFPAY | PROVIDERS: PCP Nurse Practitioner Family; Visit Provider Internal Medicine | DX: M75.32 Calcific tendinitis of left shoulder (principal) | CPT/HCPCS: 99212 ==

== ENCOUNTER 2024-08-19 10:21 | Outpatient (AMB) | payer OTHER, SELFPAY ==
[2024-08-19 10:25] VITALS: BP 112/75; PULSE 69; RESP 14; O2SAT 96; BMI 30.3
--- NOTE | 2024-08-19 10:25 | MHC.OFFVIS ---
Vital Signs 08/19/24 10:25 Height 5 ft 8 in Weight 199 lb BMI 30.3 BP 112/75 Blood Pressure Location Lt brachial Position Sitting Respiration 14 Pulse 69 Pulse Source Pulse Oximeter Pulse Oximetry (%) 96 Oxygen Delivery Method Room Air Intake Visit Reasons: Left supraspinatus tendon inj w/ dextrose Allergies oxycodone Allergy (Intermediate, Verified 08/19/24 10:26) nausea/dry heave alcohol Adverse Reaction (Severe, Verified 08/19/24 10:26) Vomiting dust mites Allergy (Intermediate, Uncoded 08/19/24 10:26) Patient was notified during allergy testing. maple trees Allergy (Mild, Uncoded 08/19/24 10:26) congestion Medication List - Last Reconciled 08/19/24 by Lainey Rocha LPN cyclobenzaprine 10 mg PO TID PRN magnesium 250 mg PO DAILY multivitamin 1 tab PO DAILY naproxen 500 mg PO BID PRN HPI HPI Left supraspinatus tendon inj w/ dextrose: Details: 29-year-old male who presents today to the office for a left supraspinatus tendon with dextrose. Denies any recent cough, cold, infection, fever or other significant changes in medical history since last office visit. Past procedures 05/20/24: Left peritendinous supraspinatus tendon injection: 20-30% relief. 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 Alert and oriented. Mood and affect appropriate. Follows and participates in conversation appropriately. Respiratory effort is unlabored. Able to transition from sit to stand unassisted. Ambulates with bilaterally normal heel strike and toe off. Office Procedures AMB Joint Injection/Aspiration Joint Injection/Aspiration Details: Left supraspinatus tendon injection with 25% dextrose, US guided After obtaining written consent, pre-procedure blood pressure and pulse were recorded and are in the nursing record for review. The site was prepped using aseptic technique and site was prepped using sterile technique. A 25-gauge needle was advanced under ultrasound guidance to the supraspinatus tendon. 10 mL of 25% dextrose solution was injected on the left side around the supraspinatus tendon using posterolateral approach. Time Out: Immediately prior to the procedure, the following was verbally confirmed that there is a signed consent form and that the correct patient, planned procedure, site and side are consistent with documentation and that necessary equipment and/or blood products are available prior to the start of the case. Complications: none Coding 48652 - Acromioclavicular with ultrasound guidance (Left side, US guided. ) Procedure code (CPT) selection complete Results Reviewed Results Reviewed: No imaging is available for review. Assessment & Plan Assessment & Plan (1) Calcific tendonitis of left shoulder: Code(s): M75.32 - Calcific tendinitis of left shoulder Category: Medical Plan Patient is status post left supraspinatus tendon injection with 10 mL of 25% dextrose, US guided. Patient reported severe pain immediatey following injection and this was treated with ice-pack application. He was discharged home in stable condition.? All questions were answered. We will follow-up in two weeks via telephone or in clinic to assess response to therapy. A follow-up appointment was made during today's visit. Scribed for Dr. Plunkett by Kenneth Pyle biomedical manager, on 08/19/2024. I, Dr. Plunkett, have personally reviewed and agree with the information entered by the scribe. Coding Level of Care Code Procedure Only Diagnoses Calcific tendonitis of left shoulder M75.32 CPT Codes Coding - Joint 6: 60414 - Acromioclavicular with ultrasound guidance ([id number])
== END 2024-08-19 11:01 | disposition home or self-care (01) ==
PROVIDERS: PCP Nurse Practitioner Family; Visit Provider Internal Medicine
DX: M75.32 Calcific tendinitis of left shoulder (principal)
CPT/HCPCS: 20551

== ENCOUNTER → 2024-08-19 10:21 | Outpatient (BNVA) | payer OTHER, SELFPAY | PROVIDERS: PCP Nurse Practitioner Family; Visit Provider Internal Medicine | DX: M75.32 Calcific tendinitis of left shoulder (principal) | CPT/HCPCS: 20551 ==

== ENCOUNTER 2025-06-16 10:19 | Outpatient (REF) | payer OTHER, SELFPAY ==
[2025-06-16 14:14] LABS: Appearance Urine Clear; Glucose Urine UA Negative (Negative); PH 6.0 (5.0-9.0); Specific Gravity - Urine >= 1.030 (1.005-1.025)
[2025-06-16 14:22] LABS: MANUAL DIFF FLAG NO
[2025-06-16 14:28] LABS: Hematocrit 46.1 % (42.0-52.0); Hemoglobin 16.4 g/dl (14.0-18.0); Imm Gran Abs Auto 0.03 X10*3/uL (0.00-0.03); Imm Gran Pct Auto 0.4 % (0.0-0.4); Lymphocytes Absolute Auto 2.2 X10*3/uL (1.2-4.9); Mean Corpuscular HGB Conc 35.6 g/dl (31.0-36.0); Mean Corpuscular Hemoglobin 30.9 pg (27.0-33.0); Mean Corpuscular Volume 86.8 fL (80.0-98.0); NRBC Abs Auto 0.000 X10*3/uL (0.0-0.012); NRBC Pct Auto 0.0 /100WBC (0.0-0.2); Platelet Count 296 X10*3/uL (160-400); Red Blood Count 5.31 X10*6/uL (4.60-5.80); White Blood Count 7.8 X10*3/uL (4.8-10.8)
[2025-06-16 14:53] LABS: Alanine Aminotransferase 34 U/L (0-40); Albumin Level 4.9 g/dL (3.5-5.0); Alkaline Phosphatase 71 U/L (39-117); Anion Gap 12 (12-20); Aspartate Amino Transferase 31 U/L (5-37); Blood Urea Nitrogen 19 mg/dL (9-16); Calcium 9.6 mg/dL (8.4-10.2); Carbon Dioxide 26 mmol/L (22-29); Chloride 106 mmol/L (96-108); Cholesterol 201 mg/dL (<200); Estimated Glomerular Filt Rate > 60; HDL Cholesterol 36 mg/dL (>40); Potassium 4.1 mmol/L (3.3-5.1); Sodium 140 mmol/L (135-145); Total Protein 8.2 g/dL (6.5-8.0); Triglycerides 193 mg/dL (<150)
[2025-06-16 15:23] LABS: Microalbum/Creatinine Ratio Ur 6.0 ug/mg cr (<30)
== END 2025-06-16 10:20 | disposition home or self-care (01) ==
LOC: HO.WFDLDS 10:19
PROVIDERS: PCP Nurse Practitioner Family; Visit Provider Nurse Practitioner Family
DX: Z23 Encounter for immunization (principal); Z00.00 Encounter for general adult medical examination without abnormal findings; Z01.00 Encounter for examination of eyes and vision without abnormal findings; G47.9 Sleep disorder, unspecified
CPT/HCPCS: 36415; 80053; 80061; 81003; 82043; 82306; 82570; 84443; 85025; 90471; 90715; 96127; 99395

== ENCOUNTER 2025-06-16 10:19 | Outpatient (AMB) | payer OTHER, SELFPAY ==
--- NOTE | 2025-06-16 10:26 | MHC.PC.OV ---
Vital Signs 06/16/25 10:34 Height 5 ft 8 in Weight 201 lb 4 oz BMI 30.6 BP 121/65 Blood Pressure Location Lt brachial Position Sitting Respiration 16 Pulse 69 Pulse Source Pulse Oximeter Temp 97.9 F Temp Source Oral Pulse Oximetry (%) 98 Oxygen Delivery Method Room Air Intake Visit Reasons: Annual PE Intake Note: patient here for CPE Ergonomics Consultant Required: No Allergies oxycodone Allergy (Intermediate, Verified 06/16/25 10:40) nausea/dry heave alcohol Adverse Reaction (Severe, Verified 06/16/25 10:40) Vomiting dust mites Allergy (Intermediate, Uncoded 06/16/25 10:40) Patient was notified during allergy testing. maple trees Allergy (Mild, Uncoded 06/16/25 10:40) congestion Medication List - Last Reconciled 06/16/25 by Karie Vaz CNP No Known Home Meds Tobacco use date assessed: 06/16/25 Dental Screening Dental Screen Date: 06/16/25 Did you have a dental visit in the last 12 months?: No Did you have a dental problem in the last 6 months where you did not have access to dental care?: No Was dental information given to patient?: Yes HPI HPI Comments History of Present Illness Details 30-year-old male presents for an extended physical exam. Reports difficulty falling asleep for the past 6-8 months. He is unsure if he snores (does not have a partner). He consumes 10mg CBD gummy and takes 3 mg melatonin for sleep with improvement. Acute issue(s) - None Past Medical History - Hyperlipidemia, left shoulder pain, anxiety, depression Social History - Nonsmoker. Does not vape. Does not drink alcohol. 10mg CBD gummy for sleep - Has been making healthy dietary choices. Exercises routinely. Reports trouble falling asleep, unsure if he snores (does not have a partner) Health maintenance - Last eye exam was 2-3 years ago. Referred to ophthalmology for routine eye exam - Last dental visit was 2.5 years ago; encouraged to schedule an appointment with his dentist for routine dental care - Last Tdap was in 04/19/2011; receives Tdap today - Has not been vaccinated for the flu this season; declines vaccination [facility] Medical History COVID Hand numbness History of multiple concussions Left inguinal hernia Normal colonoscopy Partial tear of left subscapularis tendon Surgical History History of appendectomy Family History Paternal Uncle Lung cancer Maternal Grandfather Stroke Social History (Updated 06/16/25 @ 10:33 by Ayse Brooke MA) Housing: House Alcohol intake: current Patient Tobacco Use Status: Never used Tobacco e-Cigarette/Vaping Use: Never Used Second Hand Smoke Exposure: No service: No Current occupational status: employed 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 1. Little interest or pleasure in doing things: not at all 2. Feeling down, depressed, or hopeless: not at all 3. Trouble falling or staying asleep, or sleeping too much: nearly every day 4. Feeling tired or having little energy: nearly every day 5. Poor appetite or overeating: not at all 6. Feeling bad about yourself - or that you are a failure or have let yourself or your family down: not at all 7. Trouble concentrating on things, such as reading the newspaper or watching television: not at all 8. Moving or speaking so slowly that other people could have noticed. Or the opposite - being so fidgety or restless that you have been moving around a lot more than usual: not at all 9. Thoughts that you would be better off or of hurting yourself in some way: not at all Total score: 6 Depression Screening Interpretation: Positive Depression Screening Done: Yes 96024 - PHQ-9 Billing: Yes Source: Developed by Drs. James Jeter, Shannen Teran, Augustine Baeza and colleagues, with an educational bobo from [employer]. Thrive Questionnaire Date Thrive assessed: 06/16/25 I am a: Patient What is your living situation today?: I have a steady place to live Within the past 12 months, did the food you bought not last and you didn't have the money to get more?: Never true Within the past 12 months, did you worry whether your food would run out before you got money to buy more?: Never true Do you have trouble paying for medicines?: No Do you have trouble getting transportation to medical appointments?: No Do you have trouble paying your heating and electricity bill?: No Do you have trouble taking care of your child, family member or friend?: No Do you have trouble with day-to-day activities such as bathing, preparing meals, shopping, managing finances, etc.?: No Are you currently unemployed and looking for a job?: No Are you interested in more education?: No Please select the resources that you would like help with: None Currently or been in a relationship where the following occur: No concerns reported THRIVE Score: 0 AUDIT C Alcohol Use Questionnaire (AUDIT-C) 1. How often do you have a drink containing alcohol?: Never 3. How often do you have six or more drinks on one occasion?: Never Total Score: 0 JAVIER-7 AMB Questionnaire JAVIER-7 Date JAVIER - 7 assessed: 06/16/25 Feeling nervous, anxious, or on edge: 0 = Not at all Not being able to stop or control worryin = Not at all Worrying too much about different things: 0 = Not at all Trouble relaxin = Not at all Being so restless that it is hard to sit still: 0 = Not at all Becoming easily annoyed or irritable: 0 = Not at all Feeling afraid as if something awful might happen: 0 = Not at all Total JAVIER-7 score (0-4 normal; 5-9 mild; 10-14 moderate; 15-21 severe): 0 Source: Developed by Drs. James Jeter, Shannen Teran, Augustine Baeza and colleagues, with an educational bobo from [employer]. JAVIER-7 Assessment Billing JAVIER-7 Assessment Tool: JAVIER-7 Assessment 84010 Review of Systems Const Details: Denies chills, Denies fatigue, Denies fever(s), Denies headache(s) and Denies weakness HEENT Denies change in vision, Denies dizziness, Denies headache(s), Denies hearing loss, Denies nasal congestion, Denies sinus pain, Denies sinus pressure and Denies sore throat Card Denies chest pain, Denies lightheadedness, Denies dyspnea and Denies other (palpitations) Resp Denies cough, Denies dyspnea and Denies wheezing GI Denies abdominal pain, Denies melena, Denies hematochezia, Denies change in bowel habits, Denies dyspepsia and Denies nausea Denies hematuria and Denies dysuria Musc Denies abnormal gait, Denies myalgias, Denies arthralgias, Denies numbness and Denies tingling Skin/Breast Denies rash, Denies unusual bruising and Denies wounds Neuro Denies abnormal gait, Denies dizziness, Denies headache(s), Denies memory loss, Denies numbness, Denies Sensory deficit (Neuro), Denies tingling and Denies weakness Psych Denies anxiety, Denies depression and Denies memory loss Endo Denies cold intolerance, Denies fatigue, Denies heat intolerance, Denies polydipsia and Denies polyuria Urbano/Lymph Denies easy bleeding and Denies easy bruising Aller/Immun Denies wheezing Physical exam (Primary Care) Vital Signs: Last Vital Signs Temp 97.9 F 06/16/25 10:34 Pulse 69 06/16/25 10:34 Resp 16 06/16/25 10:34 BP 121/65 06/16/25 10:34 Pulse Ox 98 06/16/25 10:34 Oxygen Delivery Method Room Air 06/16/25 10:34 BMI result Body Mass Index 30.6 Tobacco/Smoking Status: Tobacco use Status Tobacco use date assessed 06/16/25 06/16/25 10:34 Patient Tobacco Use Status Never used Tobacco 06/16/25 10:33 e-Cigarette/Vaping Use Never Used 06/16/25 10:33 PHQ-9: PHQ-9 Score PHQ-9: Total score 6 06/16/25 10:41 Depression Screening Interpretation: Positive Thrive Assessment: Date of Thrive Assessment Date Thrive assessed 06/16/25 06/16/25 10:34 Currently or been in a relationship where the following occur: No concerns reported Const Other: General: no acute distress, well developed, alert and awake Nutritional Appearance: well nourished Orientation/consciousness: patient oriented x3 HENMT Head: Yes normocephalic and Yes atraumatic Ears: hearing grossly normal bilaterally and TM's normal bilaterally General nose exam: Normal external nose present and Normal nares present Mouth: Normal oral and palatal mucosa present and moist mucous membranes Teeth and gingiva: dentition normal Throat: Yes oropharynx normal Eyes Pupils: Equal, round and reactive pupils present and Pupil accommodation reflex normal EOM: EOMs intact bilaterally Neck Neck: Yes normal visual inspection, Yes no lymphadenopathy and Yes trachea midline Thyroid: Thyroid normal Carotids: no bruits Lymphatic: no lymphadenopathy noted Chest Chest palpation & inspection: normal inspection of the chest Resp Effort & Inspection: normal respiratory effort Auscultation: clear to auscultation bilaterally Cardio Rate: regular rate Rhythm: regular rhythm Heart sounds: S1 normal heart sound present, S2 normal heart sound present, no gallops, no murmurs and no rubs Bruits: no abdominal aortic bruits and no carotid bruits GI Palpation (GI): No Abdominal aortic bruit present, Soft to palpation, nontender, No hepatosplenomegaly present and No Rebound tenderness present Auscultation: normal bowel sounds General: Yes no CVA tenderness Back/Spine/Pelvis Back: no CVA tenderness Cervical Spine: cervical ROM normal and No Cervical spine tenderness Thoracic/Lumbar Spine: thoraco-lumbar ROM normal, No pain with thoraco-lumbar ROM, No thoracic spinal tenderness and No lumbar spinal tenderness Skin General: warm and dry. Normal skin color. Normal skin turgor Lesions: no lesions Rashes: no rashes Trauma: no lacerations or abrasions Wounds: no wounds Nails: normal Neuro General: patient oriented x3, gait normal and CN's II-XI intact bilaterally Cranial nerves: Yes Equal, round and reactive pupils present Cognition (Neuro): normal cognition Gait exam (Neuro): Normal gait present Motor exam (neuro): 5/5 motor strength present throughout Sensory Exam: No Sensory deficit (Neuro) Deep tendon reflexes (DTR's): Right patellar reflex intensity grade: 2+ and Left patellar reflex intensity grade: 2+ Extrem General: Yes normal to inspection, No edema and No calf tenderness Psych Appearance: grossly normal Affect: normal affect Attitude: cooperative Thought process: Normal thought process present Immunizations Boostrix Tdap 2.5 Lf unit-8 mcg-5 Lf/0.5 mL intramuscular syringe Performing Provider: Karie Vaz CNP Performing Location: [facility] Administered by: Jone Miramontes RN on 06/16/25 11:13 Dose Route Admin Location Dispensed Lot Number Expiration Date [facility] Chief Minister 0.5 mL IM Right Deltoid 0.5 mL [id number] 08/01/27 99012-224-26 [employer] Total Dispensed Waste 0.5 mL 0 % VIS Given Date VIS Provided VIS Publication Date 06/16/25 Single Vaccine 21 Eligibility Eligibility Date Funding Source Not [facility] Eligible 06/16/25 Private Coding Level of Care Code Est Pt Prev Care 18-39y([id number]) Diagnoses Normal physical exam Z00.00 Sleep disturbance G47.9 Eye exam, routine Z01.00 Laboratory tests ordered as part of a complete physical exam (CPE) Z00.00 Additional Codes JAVIER-7 Assessment Billing - JAVIER-7 Assessment Tool: JAVIER-7 Assessment 39080 ([id number]) PHQ-9 - 84125 - PHQ-9 Billing: Yes ([id number]) Assessment & Plan Assessment & Plan (1) Normal physical exam: Code(s): Z00.00 - Encounter for general adult medical examination without abnormal findings Category: Medical Plan: No significant functional limitations noted. Healthy diet and routine exercise encouraged. Perform lab work and follow-up for telehealth visit for labs review in 2-4 weeks. Return sooner with symptoms or concerns. Verbalized understanding and agreed with the plan. (2) Sleep disturbance: Code(s): G47.9 - Sleep disorder, unspecified Category: Medical Plan: Reports difficulty falling asleep for the past 6-8 months. He is unsure if he snores (does not have a partner). He consumes 10mg CBD gummy and takes 3 mg melatonin for sleep with improvement. Instructed on sleep hygiene. Referred to [facility] [place] [facility]. (3) Eye exam, routine: Code(s): Z01.00 - Encounter for examination of eyes and vision without abnormal findings Category: Medical Plan: Last eye exam was 2-3 years ago. Referred to ophthalmology for routine eye exam. (4) Laboratory tests ordered as part of a complete physical exam (CPE): Code(s): Z00.00 - Encounter for general adult medical examination without abnormal findings Category: Medical Plan: Fasting labs ordered as part of a complete physical exam. Advised to fast for at least 10 hours before getting labs drawn. May drink water Verbalized understanding and agreed with treatment plan. Orders: Orders TDaP Immunization Today Z23 - Encounter for immunization Lipid Panel Today Z00.00 - Encounter for general adult medical examination without abnormal findings TSH reflex Free T4 Today Z00.00 - Encounter for general adult medical examination without abnormal findings UA CC w/rflx Micro + Cult Today Z00.00 - Encounter for general adult medical examination without abnormal findings Vitamin D 25-OH Total Today Z00.00 - Encounter for general adult medical examination without abnormal findings Complete Blood Count Auto Diff Today Z00.00 - Encounter for general adult medical examination without abnormal findings Comprehensive Ollie. Panel Fast Today Z00.00 - Encounter for general adult medical examination without abnormal findings Microalbumin, Random (w Creat) Today Z00.00 - Encounter for general adult medical examination without abnormal findings Referrals Sleep Medicine Referral G47.9 - Sleep disorder, unspecified Ophthalmology Referral Z01.00 - Encounter for examination of eyes and vision without abnormal findings
[2025-06-16 10:34] VITALS: BP 121/65; PULSE 69; RESP 16; TEMP 36.6; O2SAT 98; BMI 30.6
--- OUTSIDE RECORDS SUMMARY | 2025-06-16 11:24 | XMS_ITS | Clinical Summary ---
Author Organization [facility] ity Address [address] [place] [address] Care Team Providers Care Community Coordinator Name Role Phone Unavailable Primary Care Provider Unavailabl e Social History Tobacco Use Types Packs/Day Years Used Date Smoking Tobacco: Never Assessed Sex and Gender Information Value Date Recorded Sex Assigned at Not on file Legal Sex Male 11:44 PM EST Gender Identity Not on file Sexual Orientation Not on file Plan of Treatment Health Maintenance Due Date Last Done Comments DTaP,Tdap,and Td Vaccines (1 - Tdap) 2014 Hepatitis B Vaccines (1 of 3 - 19+ 3-dose series) 2014 Depression Screening 10/12/2024 COVID-19 Vaccine (1 - 2023-2 5 season) 2025 Influenza Vaccine (#1) 2025 HIB Vaccines Aged Out No longer eligi ble based on patient's age to complete this topic HPV Vaccines Aged Out No longer eligi ble based on patient's age to complete this topic Hepatitis A Vaccines Aged Out No long er eligible based on patient's age to complete this topic IPV Vaccines Aged Out No longer eligi ble based on patient's age to complete this topic MMR Vaccines Aged Out No longer eligi ble based on patient's age to complete this topic Meningococcal ACWY Vaccine Aged Out N o longer eligible based on patient's age to complete this topic Meningococcal B Vaccine Aged Out No l onger eligible based on patient's age to complete this topic Pneumococcal Vaccine: Pediat rics (0 to 5 Years) and At-Risk Patients (6 to 49 Years) Aged Out No longer eligible b ased on patient's age to complete this topic RSV Immunization Patients Un lucian 20 months Aged Out No longer eligible b ased on patient's age to complete this topic Varicella Vaccines Aged Out No longer eligible based on patient's age to complete this topic
== END 2025-06-16 11:08 | disposition home or self-care (01) ==
LOC: HO.HMCFM 10:19
PROVIDERS: PCP Nurse Practitioner Family; Visit Provider Nurse Practitioner Family
DX: Z00.00 Encounter for general adult medical examination without abnormal findings (principal); G47.9 Sleep disorder, unspecified; Z01.00 Encounter for examination of eyes and vision without abnormal findings; Z23 Encounter for immunization

== ENCOUNTER 2025-07-06 09:34 | Outpatient (AMB) | payer OTHER, SELFPAY ==
[2025-07-06 09:39] VITALS: BP 118/78; PULSE 72; O2SAT 97; BMI 30.9
--- NOTE | 2025-07-06 09:39 | A.OFFVIS_ITS ---
Vital Signs 07/06/25 09:39 Height 5 ft 8 in Weight 203 lb 4 oz BMI 30.9 BP 118/78 Blood Pressure Location Rt brachial Position Sitting Pulse 72 Pulse Source Pulse Oximeter Pulse Oximetry (%) 97 Oxygen Delivery Method Room Air Intake Visit Reasons: INP-DARRIUS Intake Note: Patient presents [facility]CEPTION[facility] DARRIUS. Reports difficulty falling asleep for the past 6-8 months. He is unsure if he snores (does not have a partner). He consumes 10mg CBD gummy and takes 3 mg melatonin for sleep with some improvement. Goes to bed around 12am wakes up at 8-9am. Wakes up about once per night. No history of sleep studies. Has been tracking his sleep and he is not really getting REM. Accompanied by: Self / Same As Patient Allergies oxycodone Allergy (Intermediate, Verified 07/06/25 09:42) nausea/dry heave alcohol Adverse Reaction (Severe, Verified 07/06/25 09:42) Vomiting dust mites Allergy (Intermediate, Uncoded 06/16/25 10:40) Patient was notified during allergy testing. maple trees Allergy (Mild, Uncoded 06/16/25 10:40) congestion HPI Comments Details: 30 year old male with sleep difficulties is here for an evaluation of sleep apnea, referred to us by his pcp. H/O Concussion in 2013 he slipped and fell hit the back of his head CT was normal at [facility]. 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 He likes daniel or watching football. He feels more congested when laying down on his back, he blows his nose multiple times. 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 His entire body would overheat and heart would start racing due to some ghost like figure coming at him though this is no longer happening. He goes to bed about midnight and falls asleep by 1am. He wakes up at 8-9am with one bathroom breaks. He takes CBD gummies daily to help him to fall asleep. He tracks his core/REM on his apple watch, core is 60-70% and 15-20% is REM sleep. He says his sleep has improved since tracking patterns on his watch. Mood can be irritable due to fatigue and lack of sleep. 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 Current occupational exposures/hazards: No Cognitive needs: No Hearing needs: No Vision needs: No Physical Exam Vital Signs: Last Vital Signs Pulse 72 07/06/25 09:39 BP 118/78 07/06/25 09:39 Pulse Ox 97 07/06/25 09:39 Oxygen Delivery Method Room Air 07/06/25 09:39 BMI result Body Mass Index 30.9 Const General: cooperative, comfortable and no acute distress Orientation/consciousness: patient oriented x3 HEENT Face and sinus: Yes face symmetric Teeth and gingiva: other (m[place]ampti 3) Eyes Pupils: Equal, round and reactive pupils present Neck Neck: Yes full ROM Resp Effort & Inspection: normal respiratory effort and able to speak in complete sentences Neuro General: patient oriented x3 and moves all extremities Cranial nerves: Yes Equal, round and reactive pupils present, Yes Normal facial strength present, Yes Midline tongue present, Yes Ability to bilaterally rotate head present and Yes Ability to bilaterally elevate shoulders present Cognition (Neuro): normal cognition Gait exam (Neuro): Normal gait present Motor exam (neuro): 5/5 motor strength present throughout and Normal motor muscle tone present throughout Psych Appearance: grossly normal Thought content: Normal thought content present Insight: Good insight present (Psych) Assessment & Plan Assessment & Plan (1) Excessive daytime sleepiness: Code(s): G47.19 - Other hypersomnia Category: Medical (2) Chronic fatigue: Code(s): R53.82 - Chronic fatigue, unspecified Category: Medical Plan HST r/o darrius Labs r/o deficiencies Sleep hygiene reviewed with pt. F/u in 3 months. Orders: Orders Ferritin Today R53.82 - Chronic fatigue, unspecified Vitamin B6 Today R53.82 - Chronic fatigue, unspecified Vitamin B12 and Folate Today R53.82 - Chronic fatigue, unspecified Vitamin B1 Today R53.82 - Chronic fatigue, unspecified Homocysteine Today G47.9 - Sleep disorder, unspecified, R53.82 - Chronic fatigue, unspecified, R53.83 - Other fatigue Methylmalonic Acid Today G47.9 - Sleep disorder, unspecified, R53.82 - Chronic fatigue, unspecified, R53.83 - Other fatigue RT home sleep study Today G47.19 - Other hypersomnia Patient Instructions: Sleep Hygiene provided: set a scheduled bedtime and wake time to help regulate the circadian rhythm and balance the release of pituitary hormones. Sleep in a dark room, temperatures below 68 degrees, and no devices n bed. Limit caffeinated products 6 hours prior to bed, and limit fluids 2-4 hours prior to bed. Gentle night yoga, diffusing essential oils, and playing soft music can be relaxing. Coding Level of Care Code New Pt Level 4 (93869) Diagnoses Excessive daytime sleepiness G47.19 Chronic fatigue R53.82 Sleep Questionnaire Difficulty falling asleep: Yes Difficulty staying asleep?: No Number of arousals: 1- Snoring: No Witnessed apneas: No Gasping arousals: No Nocturia: No GERD: No Vivid dreams: Yes Acting out dreams: Yes Abnormal behavior in sleep: Yes Abnormal movements in sleep: Yes (kicking) Morning headaches: No Excessive daytime sleepiness: Yes Daytime naps: No Restless legs: No Hallucinations: No Sleep paralysis: Yes Drop attacks: No Sleep Study: No CPAP: No
--- OUTSIDE RECORDS SUMMARY | 2025-07-06 11:07 | XMS_ITS | Clinical Summary ---
Author Organization [facility] ity Address [address] [place] [address] Care Team Providers Care Electronic Maintenance Supervisor Name Role Phone Unavailable Primary Care Provider [...]
== END 2025-07-06 10:32 | disposition home or self-care (01) ==
LOC: HO.HSMS 09:35
PROVIDERS: PCP Nurse Practitioner Family; Visit Provider Physician Assistant Medical
DX: G47.19 Other hypersomnia (principal); R53.82 Chronic fatigue, unspecified
CPT/HCPCS: 99204

== ENCOUNTER → 2025-07-06 09:34 | Outpatient (BNVA) | payer OTHER, SELFPAY | PROVIDERS: PCP Nurse Practitioner Family; Visit Provider Physician Assistant Medical | DX: G47.19 Other hypersomnia (principal); R53.82 Chronic fatigue, unspecified; G47.9 Sleep disorder, unspecified | CPT/HCPCS: 99202 ==

== ENCOUNTER 2025-08-08 15:34 | Outpatient (AMB) | payer OTHER, SELFPAY ==
--- NOTE | 2025-08-08 15:10 | MHC.PC.OV ---
Intake Visit Reasons: Tele 2-4 wks labs review Intake Note: patient here for 2-4 wks follow up on labs review Escalation Engineer Required: No Allergies oxycodone Allergy (Intermediate, Verified 08/08/25 15:30) nausea/dry heave alcohol Adverse Reaction (Severe, Verified 08/08/25 15:30) Vomiting dust mites Allergy (Intermediate, Uncoded 08/08/25 15:30) Patient was notified during allergy testing. maple trees Allergy (Mild, Uncoded 08/08/25 15:30) congestion Tobacco use date assessed: 08/08/25 Dental Screening Dental Screen Date: 08/08/25 Did you have a dental visit in the last 12 months?: No Did you have a dental problem in the last 6 months where you did not have access to dental care?: No Was dental information given to patient?: No HPI HPI Comments History of Present Illness Details 30-year-old male presents for review of recent lab results. He admits to making healthy lifestyle choices. Unsure of family history of HLD. He offers no complaints and denies acute symptoms at this time. 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 James Jeter, Shannen Teran, Augustine Baeza and colleagues, with an educational bobo from [employer]. Review of Systems Const Details: Denies chills, Denies fatigue, Denies fever(s), Denies headache(s) and Denies weakness Cardiac Denies chest pain, Denies claudication, Denies leg edema, Denies lightheadedness, Denies palpitations, Denies dyspnea, Denies dyspnea on exertion, Denies orthopnea and Denies other (Loss of consciousness) Resp Denies cough, Denies excessive phlegm production, Denies dyspnea, Denies dyspnea on exertion, Denies snoring and Denies wheezing Physical exam (Primary Care) Tobacco/Smoking Status: Tobacco use Status Tobacco use date assessed 06/16/25 08/08/25 15:12 Patient Tobacco Use Status Never used Tobacco 08/08/25 15:12 e-Cigarette/Vaping Use Never Used 08/08/25 15:12 Thrive Assessment: Date of Thrive Assessment Date Thrive assessed 06/14/25 08/08/25 15:12 Const Other: Patient is alert and oriented x3 Telehealth Telehealth Telehealth Platform: Telephone Location of provider rendering services: practice address Location of patient: address on file Patient Identification confirmed using: Name, : Yes Telehealth method: voice only Patient verbally consented to treatment: Yes Patient verbally consented to billing insurance company: Yes Patient informed of any privacy concerns related to visit: Yes Coding Level of Care Code Tele Est Pt Level 3 (04667) Diagnoses Hyperlipidemia E78.5 Time Spent (min) 10 Assessment & Plan Assessment & Plan (1) Hyperlipidemia: Code(s): E78.5 - Hyperlipidemia, unspecified Category: Medical Plan: Recent triglycerides, total cholesterol, and LDL levels are elevated, 193, 201, and 127 respectively, HDL level is slightly low, 36. Advised to limit foods high in saturated fat and avoid foods high in trans fat. Routine exercise encouraged. Fast for 10-12 hours, may drink water, and perform lipid panel blood work a few days before next visit. Follow-up for KARO/HLD in 2 months. Return sooner with symptoms or concerns. Verbalized understanding and agreed with the plan. Orders: Orders Lipid Panel 2 Months E78.5 - Hyperlipidemia, unspecified
--- OUTSIDE RECORDS SUMMARY | 2025-08-08 19:55 | XMS_ITS | Clinical Summary ---
Author Organization [facility] ity Address [address] [place] [address] Care Team Providers Care Circular Head Saw Operator Name Role Phone Unavailable Primary Care Provider [...] of 3 - 19+ 3-dose series) 2014 HPV Vaccines (1 - 3-dose SCD M series) 2022 Depression Screening 10/12/2024 COVID-19 Vaccine (1 - 2023-2 5 season) 2025 Influenza Vaccine (#1) 2025 RSV Immunization Adult Patie nts (1 - 1-dose 75+ series) 2070 HIB Vaccines Aged Out No longer eligi [...]
== END 2025-08-08 16:17 | disposition home or self-care (01) ==
LOC: HO.HMCFM 15:35
PROVIDERS: PCP Nurse Practitioner Family; Visit Provider Nurse Practitioner Family
DX: E78.5 Hyperlipidemia, unspecified (principal)

== ENCOUNTER 2025-09-22 10:35 | Outpatient (REF) | payer OTHER, SELFPAY ==
[2025-09-22 11:50] LABS: Cholesterol 193 mg/dL (<200); HDL Cholesterol 31 mg/dL (>40); Triglycerides 145 mg/dL (<150)
[2025-09-22 12:14] LABS: HBS Num1 0.00 mIU/mL (0-7.99); HBc Num1 0.07 S/CO (0.00-0.79); HBsAGNum1 0.46 S/CO (0.00-0.99); HIV Num 1 0.06 S/CO (0.00-0.99); Hepatitis B Surface Antigen Negative (Negative); ~HepC Num1 0.22 S/CO (0.00-0.79); ~Hepatitis B Surface Antibody NONREACTIVE (Nonreactive); ~Hepatitis C Antibody Nonreactive (Nonreactive)
[2025-09-22 12:15] LABS: Syphilis Screen Nonreactive (Nonreactive)
[2025-09-22 13:07] LABS: CT PCR Urine NOT DETECTED (Not Detect.); NG PCR Urine NOT DETECTED (Not Detect.)
== END 2025-09-22 10:36 | disposition home or self-care (01) ==
LOC: HO.LAB 10:35
PROVIDERS: Absent Provider Physician Assistant Medical; PCP Nurse Practitioner Family; Visit Provider Nurse Practitioner Family
DX: Z20.2 Contact with and (suspected) exposure to infections with a predominantly sexual mode of transmission (principal); Z11.59 Encounter for screening for other viral diseases; Z11.4 Encounter for screening for human immunodeficiency virus [HIV]; E78.5 Hyperlipidemia, unspecified
CPT/HCPCS: 80061; 86704; 86706; 86780; 86803; 87340; 87389; 87491; 87591